=== PATIENT | female | born 1955 | race Caucasian/White ===

== ENCOUNTER 2017-03-02 16:46 | Inpatient (IN) | payer BC ==
[~2017-03-02] VITALS: Ht 162.6 cm; Wt 94.0 kg
[~2017-03-02 16:46] MED LIST: ACETAMINOPHEN/HYDROcodone 325 MG/10 MG TAB PO PRN; CYCL1PAK PO; DEXTROSE 50% IN WATER 50 ML VIAL(D50) IV PRN; ERGO2000 PO; ERGO50000 PO; GLUCAGON 1 MG/ML VIAL OTHER PRN; GLUCTAB PO; LACTULOSE SYRUP 20 GM/30 ML CUP PO PRN; LEVO.15 PO; LISI-519 PO; LOVA20TA PO; METF500T PO; NALOXONE HCL 0.4 MG/ML AMP IV PRN; NOVOLOGSS SQ; ONDANSETRON HCL 4 MG/2 ML VIAL IVP PRN; OXYC1SOL5 PO; SODIUM CHLORIDE 0.9% FLUSH 10 ML FLUSH IV FLUSH PRN; SYNT75TA PO
[2017-03-02 17:20] VITALS: O2SAT 97
[2017-03-02] MEDS ORDERED: VANCOMYCIN INJ 1,000 MG in SODIUM CHLOR 0.9% 250 ML INJ 250 ML IV ONE (17:30)
[2017-03-02] MEDS ORDERED: Vancomycin Consult Pharmacy 1 EA OTHER SCH (17:30)
[2017-03-02] MEDS: ACETAMINOPHEN 325 MG TAB PO PRN (17:34)
--- NOTE | 2017-03-02 17:39 | HHI.HP ---
[facility] Non-Staff Admission Diagnosis Diagnoses: (1) HTN (hypertension) Diagnosis: Secondary (2) Diabetes mellitus type 2 in obese Diagnosis: Secondary (3) UTI (urinary tract infection) Diagnosis: Principal (4) Sepsis Diagnosis: Principal (5) Pyelonephritis Diagnosis: Principal Travel History International Travel<30 Days: No Contact w/Intl Traveler <30 Da: No Traveled to Known Affected Are: No Sepsis Criteria SIRS Criteria (2 or more): Heart rate over 90, WBC > 02600, < 4000 or > 10% bands Sepsis Criteria (SIRS+source): Infect source susp/known History of Present Illness Mrs. Meier is a 7-year-old female. She came into the hospital secondary to lower back pain. It is also reported that she has been weak at home and having falls. She is also been acting confused. She is found to have a urinary tract infection and suspicion for pyelonephritis. Rocephin was started in the ER and diltiazem and the patient was sent here to [place] for admission. She and her help provide history. It has been approximately 3 or 4 days with gradual onset of symptoms. She does not have problems with recurrent urinary tract infections. Her baseline medical problems are diabetes mellitus type 2, hypertension, hyperlipidemia, incontinence, hypothyroidism, and history of vaginal bleeding which was treated in 2014. No other complaints. Lower back pain remains. Some nausea has been present. No chest pain. Review of Systems Constitutional: COMPLAINS OF: Fatigue, Fever, Chills Eyes: DENIES: Blurred vision, Diplopia, Eye inflammation Ears, nose, mouth, throat: DENIES: Tinnitus, Hearing loss, Vertigo Respiratory: DENIES: Cough, Wheezing, Sputum production Cardiovascular: DENIES: Chest pain, Palpitations, Syncope Gastrointestinal: DENIES: Abdominal pain, Black stools, Bloody stools Musculoskeletal: COMPLAINS OF: Back pain, DENIES: Joint pain, Muscle aches Integumentary: DENIES: Abnormal pigmentation, Pruritus, Rash Hematologic/lymphatic: DENIES: Bruising Immunologic/allergic: DENIES: Eczema Neurologic: DENIES: Abnormal gait, Headache, Paresthesias Psychiatric: COMPLAINS OF: Confusion, Mood changes, DENIES: Anxiety, Depression , Hallucinations Past Family Social History Past Medical History Diabetes mellitus type 2 Hypertension Hyperlipidemia Hypothyroidism History of vaginal bleeding (resolved with D&C) Incontinence Past Surgical History Tonsillectomy Hysterectomy D&C in 2015 Coronary stent Reported Medications Reported Meds & Active Scripts Active Reported Synthroid (Levothyroxine Sodium) 150 Mcg Tab 150 Mcg PO DAILY Vitamin D2 (Ergocalciferol) 2,000 Unit Tab 2,000 Units PO DAILY Metformin (Metformin HCl) 500 Mg Tab 500 Mg PO BIDPC With meals Lovastatin 20 Mg Tab 20 Mg PO DAILY Lisinopril 5 Mg Tab 5 Mg PO DAILY Allergies: Coded Allergies: No Known Allergies (Unverified , 03/02/17) Family History No known history of father, he left when she was a child Mother still alive and has no reported medical conditions Social History No smoking No alcohol abuse No illicit drug abuse Physical Exam Physical Exam GENERAL: NAD, A&Ox2 HEAD: Normocephalic. NECK: Supple, trachea midline. No lymphadenopathy. EYES: No scleral icterus. No injection or drainage. CARDIOVASCULAR: Regular rate and rhythm without murmurs, gallops, or rubs. RESPIRATORY: Breath sounds equal bilaterally. No accessory muscle use. GASTROINTESTINAL: Abdomen soft, non-tender, nondistended. MUSCULOSKELETAL: No cyanosis, or edema. SKIN: Warm and dry. NEURO: No focal neurological deficitis. Caprini VTE Risk Assessment Caprini VTE Risk Assessment: No/Low Risk (score <= 1) Caprini Risk Assessment Model Point Value = 1 Point Value = 2 Point Value = 3 Point Value = 5 Age 41-60 Minor surgery BMI > 25 kg/m2 Swollen legs Varicose veins or History of unexplained or recurrent spontaneous Oral contraceptives or hormone replacement Sepsis (< 1 month) Serious lung disease, including pneumonia (< 1 month) Abnormal pulmonary function Acute myocardial infarction Congestive heart failure (< 1 month) History of inflammatory bowel disease Medical patient at bed rest Age 61-74 Arthroscopic surgery Major open surgery (> 45 min) Laparoscopic surgery (> 45 min) Malignancy Confined to bed (> 72 hours) Immobilizing plaster cast Central venous access Age >= 75 History of VTE Family history of VTE Factor V Leiden Prothrombin [id number] Lupus anticoagulant Anticardiolipin antibodies Elevated serum homocysteine Heparin-induced thrombocytopenia Other congenital or acquired thrombophilia Stroke (< 1 month) Elective arthroplasty Hip, pelvis, or leg fracture Acute spinal cord injury (< 1 month) Prophylaxis Regimen Total Risk Factor Score Risk Level Prophylaxis Regimen 0-1 Low Early ambulation 2 Moderate Order ONE of the following: *Sequential Compression Device (SCD) *Heparin 5000 units SQ BID 3-4 Higher Order ONE of the following medications: *Heparin 5000 units SQ TID *Enoxaparin/Lovenox 40 mg SQ daily (WT < 150 kg, CrCl > 30 mL/min) *Enoxaparin/Lovenox 30 mg SQ daily (WT < 150 kg, CrCl > 10-29 mL/min) *Enoxaparin/Lovenox 30 mg SQ BID (WT < 150 kg, CrCl > 30 mL/min) AND/OR *Sequential Compression Device (SCD) 5 or more Highest Order ONE of the following medications: *Heparin 5000 units SQ TID (Preferred with Epidurals) *Enoxaparin/Lovenox 40 mg SQ daily (WT < 150 kg, CrCl > 30 mL/min) *Enoxaparin/Lovenox 30 mg SQ daily (WT < 150 kg, CrCl > 10-29 mL/min) *Enoxaparin/Lovenox 30 mg SQ BID (WT < 150 kg, CrCl > 30 mL/min) AND *Sequential Compression Device (SCD) Assessment and Plan Problem List: (1) Pyelonephritis ICD Code: N12 - Tubulo-interstitial nephritis, not specified as acute or chronic (2) Sepsis ICD Code: A41.9 - Sepsis, unspecified organism (3) UTI (urinary tract infection) ICD Code: N39.0 - Urinary tract infection, site not specified (4) HTN (hypertension) ICD Code: I10 - Essential (primary) hypertension (5) Diabetes mellitus type 2 in obese ICD Code: E11.69 - Type 2 diabetes mellitus with other specified complication; E66.9 - Obesity, unspecified Assessment and Plan Assessment and plan 61-year-old female admitted with UTI, pyelonephritis, and sepsis Sepsis IV hydration Follow vital signs Follow renal function Monitor for resolution of sepsis Treatment infections as below Urinary tract infection Pyelonephritis Rocephin Vancomycin for coverage of MRSA Probiotics Follow urine cultures Metabolic encephalopathy Related to infection and sepsis Treat infection as above Monitor for improvement Diabetes mellitus type 2 Follow blood sugars Insulin sliding scale Diabetic diet Hypertension Continue baseline treatment Monitor blood pressures Adjust if needed Hyperlipidemia Hypothyroidism Continue baseline treatment Follows in outpatient DVT prophylaxis Lovenox SCDs Physician Certification 2 Midnight Certification Type: Admission for Inpatient Services Order for Inpatient Services The services are ordered in accordance with Medicare regulations or non- Medicare payer requirements, as applicable. In the case of services not specified as inpatient-only, they are appropriately provided as inpatient services in accordance with the 2-midnight benchmark. Estimated LOS (days): 2 days is the estimated time the patient will need to remain in the hospital, assuming treatment plan goals are met and no additional complications. Post-Hospital Plan: Home Pb Rolon MD Mar 02, 2017 17:39
[2017-03-02] MEDS: INSULIN ASPART SUPPLEMENTAL SCALE SQ SCH ×2 (17:50→21:06)
[2017-03-02] MEDS: ENOXAPARIN SODIUM 40 MG/0.4 ML SYRINGE SQ SCH (17:52)
[2017-03-02] MEDS: SODIUM CHLOR 0.9% 1000 ML INJ 1,000 ML IV SCH ×2 (17:55→21:09)
[2017-03-02 18:00] VITALS: BP 157/78; PULSE 78; RESP 18; TEMP 98.1; O2SAT 97
[2017-03-02] MEDS: LACTOBACILLUS ACIDOPHILUS TAB PO SCH (19:00)
[2017-03-02 20:00] VITALS: BP 125/59; PULSE 90; RESP 20; TEMP 98.3; O2SAT 96
[2017-03-02] MEDS: SODIUM CHLORIDE 0.9% FLUSH 10 ML FLUSH IV FLUSH SCH (21:07)
[2017-03-03] VITALS: BP 147/69; PULSE 116; RESP 20; TEMP 102.7; O2SAT 93
[2017-03-03] MEDS: ACETAMINOPHEN 325 MG TAB PO PRN ×3 (00:33→21:09)
[2017-03-03 04:00] VITALS: TEMP 99.7
[2017-03-03] MEDS: SODIUM CHLOR 0.9% 1000 ML INJ 1,000 ML IV SCH ×2 (05:31→17:40)
[2017-03-03] MEDS: INSULIN ASPART SUPPLEMENTAL SCALE SQ SCH ×4 (05:41→21:00)
[2017-03-03 06:49] LABS: AUTOMATED NEUTROPHIL # 10.8 TH/MM3 (1.8-7.7); BASOPHIL # 0.1 TH/MM3 (0-0.2); BASOPHIL % 0.5 % (0.0-2.0); EOSINOPHIL % 0.1 % (0.0-4.0); HEMATOCRIT 33.6 % (35.0-46.0); LYMPHOCYTE # 1.3 TH/MM3 (1.0-4.8); MEAN CELL VOLUME 85.7 FL (80.0-100.0); MEAN CORPUSCULAR HEMOGLOBIN 28.4 PG (27.0-34.0); MEAN CORPUSCULAR HGB CONC 33.1 % (32.0-36.0); MONO % 5.6 % (0.0-8.0); NEUT % 83.8 % (16.0-70.0); PLATELET COUNT 236 TH/MM3 (150-450); RED BLOOD COUNT 3.92 MIL/MM3 (4.00-5.30); RED CELL DISTRIBUTION WIDTH 15.5 % (11.6-17.2); WHITE BLOOD COUNT 12.9 TH/MM3 (4.0-11.0)
[2017-03-03 06:50] LABS: HEMO FLAGS DIFF FINAL
[2017-03-03 06:56] LABS: CHLORIDE 106 MEQ/L (98-107); POTASSIUM 4.3 MEQ/L (3.5-5.1); SODIUM (NA) 138 MEQ/L (136-145)
[2017-03-03 07:01] LABS: ANION GAP 8 MEQ/L (5-15); BICARBONATE 23.6 MEQ/L (21.0-32.0); BLOOD UREA NITROGEN 13 MG/DL (7-18)
[2017-03-03 07:04] LABS: ALT (GPT) 29 U/L (10-53); AST (GOT) 30 U/L (15-37); GLOMERULAR FILTRATION RATE 57 ML/MIN (>89)
[2017-03-03 07:06] LABS: TOTAL BILIRUBIN ADULT 0.7 MG/DL (0.2-1.0)
[2017-03-03 07:07] LABS: ALKALINE PHOSPHATASE 104 U/L (45-117)
[2017-03-03 08:00] VITALS: BP 140/57; PULSE 106; RESP 20; TEMP 99.6; O2SAT 95
[2017-03-03] MEDS: SODIUM CHLORIDE 0.9% FLUSH 10 ML FLUSH IV FLUSH SCH ×2 (08:28→21:00)
[2017-03-03] MEDS: LACTOBACILLUS ACIDOPHILUS TAB PO SCH ×3 (08:49→17:35)
[2017-03-03] MEDS: VANCOMYCIN INJ 1,350 MG in SODIUM CHLORID 0.9% 500 ML INJ 500 ML IV SCH (08:49)
--- NOTE | 2017-03-03 10:51 | HHI.PR ---
Subjective Remarks This patient's ER evaluation was done at [place], some of her records (cultures ) are in that record. Patient remained symptomatically. Fevers are present as of this morning. There are some signs of improvement. Her cognition is improved. She still meets sepsis criteria. Bacteremia may be present as blood cultures are positive from yesterday. Objective Vital Signs Date Time Temp Pulse Resp B/P (MAP) Pulse Ox O2 Delivery O2 Flow Rate FiO2 03/03/17 08:00 99.6 106 20 140/57 (84) 95 03/03/17 04:00 99.7 03/03/17 00:00 102.7 116 20 147/69 (95) 93 03/02/17 20:00 98.3 90 20 125/59 (81) 96 03/02/17 18:00 98.1 78 18 157/78 (104) 97 03/02/17 17:20 97 Nasal Cannula 2.00 I/O 03/02/17 03/02/17 03/02/17 03/03/17 03/03/17 03/03/17 07:00 15:00 23:00 07:00 15:00 23:00 Intake Total 120 ml Balance 120 ml Intake Oral 120 ml # Voids 3 Result Diagram: 03/03/1737 03/03/17 0637 Objective Remarks GENERAL: NAD, A&Ox3 HEAD: Normocephalic. NECK: Supple, trachea midline. No lymphadenopathy. EYES: No scleral icterus. No injection or drainage. CARDIOVASCULAR: Regular rate and rhythm without murmurs, gallops, or rubs. RESPIRATORY: Breath sounds equal bilaterally. No accessory muscle use. GASTROINTESTINAL: Abdomen soft, non-tender, nondistended. MUSCULOSKELETAL: No cyanosis, or edema. SKIN: Warm and dry. NEURO: No focal neurological deficitis. A/P Problem List: (1) Diabetes mellitus type 2 in obese ICD Code: E11.69 - Type 2 diabetes mellitus with other specified complication; E66.9 - Obesity, unspecified (2) HTN (hypertension) ICD Code: I10 - Essential (primary) hypertension (3) UTI (urinary tract infection) ICD Code: N39.0 - Urinary tract infection, site not specified (4) Sepsis ICD Code: A41.9 - Sepsis, unspecified organism (5) Pyelonephritis ICD Code: N12 - Tubulo-interstitial nephritis, not specified as acute or chronic Assessment and Plan Assessment and plan 61-year-old female admitted with UTI, pyelonephritis, and sepsis Sepsis IV hydration Follow vital signs Follow renal function Monitor for resolution of sepsis Treatment infections as below Urinary tract infection Pyelonephritis Possible bacteremia Rocephin Vancomycin for coverage of MRSA Probiotics Follow urine cultures Repeat blood cultures Follow for set of blood cultures Consult infectious disease blood cultures and a showing more evidence of bacteremia Metabolic encephalopathy Related to infection and sepsis Treat infection as above Monitor for improvement Diabetes mellitus type 2 Follow blood sugars Insulin sliding scale Diabetic diet Hypertension Continue baseline treatment Monitor blood pressures Adjust if needed Hyperlipidemia Hypothyroidism Continue baseline treatment Follows in outpatient DVT prophylaxis Lovenox SCDs Pb Rolon MD Mar 03, 2017 10:51
[2017-03-03 12:00] VITALS: BP 136/62; PULSE 94; RESP 20; TEMP 100.7; O2SAT 93
[2017-03-03] MEDS: ENOXAPARIN SODIUM 40 MG/0.4 ML SYRINGE SQ SCH (17:36)
[2017-03-03 21:04] VITALS: BP 107/69; PULSE 90; RESP 20; TEMP 100.4; O2SAT 92
[2017-03-04 01:06] VITALS: BP 108/72; PULSE 89; RESP 20; TEMP 98.3; O2SAT 99
[2017-03-04] MEDS: VANCOMYCIN INJ 1,350 MG in SODIUM CHLORID 0.9% 500 ML INJ 500 ML IV SCH (02:00)
[2017-03-04] MEDS: ACETAMINOPHEN/HYDROcodone 325 MG/5 MG TAB PO PRN (03:57)
[2017-03-04] MEDS: SODIUM CHLOR 0.9% 1000 ML INJ 1,000 ML IV SCH ×3 (05:08→20:53)
[2017-03-04] MEDS: INSULIN ASPART SUPPLEMENTAL SCALE SQ SCH ×4 (07:00→20:49)
[2017-03-04 08:00] VITALS: BP 128/66; PULSE 86; RESP 20; TEMP 99.1; O2SAT 96
[2017-03-04 08:31] LABS: AUTOMATED NEUTROPHIL # 5.9 TH/MM3 (1.8-7.7); BASOPHIL # 0.1 TH/MM3 (0-0.2); BASOPHIL % 0.6 % (0.0-2.0); EOSINOPHIL # 0.1 TH/MM3 (0-0.4); EOSINOPHIL % 0.7 % (0.0-4.0); HEMO FLAGS DIFF FINAL; LYMPH % 17.9 % (9.0-44.0); LYMPHOCYTE # 1.5 TH/MM3 (1.0-4.8); MEAN CELL VOLUME 83.5 FL (80.0-100.0); MEAN CORPUSCULAR HEMOGLOBIN 27.2 PG (27.0-34.0); MEAN CORPUSCULAR HGB CONC 32.5 % (32.0-36.0); MONO % 7.8 % (0.0-8.0); PLATELET COUNT 214 TH/MM3 (150-450); RED BLOOD COUNT 3.59 MIL/MM3 (4.00-5.30); RED CELL DISTRIBUTION WIDTH 14.9 % (11.6-17.2); WHITE BLOOD COUNT 8.3 TH/MM3 (4.0-11.0)
[2017-03-04] MEDS: SODIUM CHLORIDE 0.9% FLUSH 10 ML FLUSH IV FLUSH SCH ×2 (08:32→20:48)
[2017-03-04 08:45] LABS: POTASSIUM 4.1 MEQ/L (3.5-5.1)
[2017-03-04] MEDS: LACTOBACILLUS ACIDOPHILUS TAB PO SCH ×3 (08:51→17:01)
[2017-03-04 09:16] LABS: BICARBONATE 21.1 MEQ/L (21.0-32.0); TOTAL BILIRUBIN ADULT 0.6 MG/DL (0.2-1.0)
[2017-03-04 09:20] LABS: CALCIUM-PROTEIN CORRECTED 7.4 MG/DL (8.5-10.1)
[2017-03-04] MEDS ORDERED: CALCIUM GLUCONATE INJ 2 GM in DEXTROSE 5% IN WATER 100ML INJ 100 ML IV ONE ×2 (11:00)
[2017-03-04] MEDS: cefTRIAXone INJ 2,000 MG in SODIUM CHLORIDE 0.9% INJ 100 ML IV SCH (11:06)
[2017-03-04] MEDS: INSULIN DETEMIR 100 UNITS/ML VIAL SQ SCH ×2 (11:12→20:52)
--- NOTE | 2017-03-04 11:21 | HHI.PR ---
Subjective Remarks Patient has had low-grade fevers. She has some right CVA tenderness. No nausea or vomiting. Calcium is low this morning and being replaced. Objective Vitals Vital Signs Date Time Temp Pulse Resp B/P (MAP) Pulse Ox O2 Delivery O2 Flow Rate FiO2 03/04/17 08:00 99.1 86 20 128/66 (86) 96 03/04/17 04:30 03/04/17 01:06 98.3 89 20 108/72 (84) 99 03/03/17 21:04 100.4 90 20 107/69 (82) 92 03/03/17 12:00 100.7 94 20 136/62 (86) 93 I/O 03/03/17 03/03/17 03/03/17 03/04/17 03/04/17 03/04/17 07:00 15:00 23:00 07:00 15:00 23:00 Intake Total 120 ml 430 ml 1488 ml Balance 120 ml 430 ml 1488 ml Intake Oral 120 ml 430 ml IV Total 1488 ml # Voids 3 4 3 # Bowel Movements 1 0 Result Diagram: 03/04/17 0712 03/04/17 0712 Objective Remarks GENERAL: Well-nourished, well-developed pleasant female patient. SKIN: Warm and dry. HEAD: Normocephalic. EYES: No scleral icterus. No injection or drainage. NECK: Supple, trachea midline. No JVD or lymphadenopathy. CARDIOVASCULAR: Regular rate and rhythm without murmurs, gallops, or rubs. RESPIRATORY: Breath sounds equal bilaterally. No accessory muscle use. GASTROINTESTINAL: Abdomen soft, non-tender, nondistended. Positive right CVA tenderness. EXTREMITIES: No cyanosis, or edema. NEUROLOGICAL: Awake, alert, and oriented x 3. Non-focal. A/P Problem List: (1) Pyelonephritis ICD Code: N12 - Tubulo-interstitial nephritis, not specified as acute or chronic (2) Sepsis ICD Code: A41.9 - Sepsis, unspecified organism (3) UTI (urinary tract infection) ICD Code: N39.0 - Urinary tract infection, site not specified (4) HTN (hypertension) ICD Code: I10 - Essential (primary) hypertension (5) Diabetes mellitus type 2 in obese ICD Code: E11.69 - Type 2 diabetes mellitus with other specified complication; E66.9 - Obesity, unspecified Assessment and Plan 61-year-old female admitted with UTI, pyelonephritis, and sepsis Sepsis due to pyelonephritis/UTIEscherichia coli bacteremia Continue IV hydration, Rocephin 2 g IV daily Repeat blood culture pending Infectious disease consultation pending. If continued fevers continue renal ultrasound Follow vital signs Follow renal function Metabolic encephalopathy-resolved Related to infection and sepsis Treat infection as above Hypocalcemia -Calcium gluconate 2 g IV now and start Tums twice a day. Telemetry. Diabetes mellitus type 2 Follow blood sugars, elevated the start Levemir 5 units subcutaneous twice a day Insulin sliding scale Diabetic diet Hypertension Continue baseline treatment Monitor blood pressures Adjust if needed Hyperlipidemia Hypothyroidism Continue baseline treatment Follows in outpatient DVT prophylaxis Lovenox SCDs Problem Qualifiers (1) Sepsis: Qualified Codes: A41.51 - Sepsis due to Escherichia coli [e. coli] Buffy Escoto MD Mar 04, 2017 11:21
[2017-03-04 12:00] VITALS: BP 133/70; PULSE 86; RESP 20; TEMP 98.7; O2SAT 95
[2017-03-04 16:00] VITALS: BP 130/111; PULSE 94; RESP 20; TEMP 98.7; O2SAT 95
[2017-03-04] MEDS: ENOXAPARIN SODIUM 40 MG/0.4 ML SYRINGE SQ SCH (17:01)
[2017-03-04] MEDS: CALCIUM CARBONATE 500 MG CHEWABLE TAB CHEW SCH (20:48)
[2017-03-04 21:45] VITALS: BP 132/57; PULSE 87; RESP 18; TEMP 99.1; O2SAT 91
[2017-03-04] MEDS: ACETAMINOPHEN 325 MG TAB PO PRN (22:42)
--- NOTE | 2017-03-04 23:35 | RADRPT ---
EXAM DATE/TIME: 03/04/2017 23:07 [place] COMPARISON: No previous studies available for comparison. INDICATIONS : Shortness of breath. MEDICAL HISTORY : Diabetes mellitus type II. SURGICAL HISTORY : None. ENCOUNTER: Initial ACUITY: 1 day PAIN SCORE: 0/10 LOCATION: Bilateral chest FINDINGS: A single view of the chest demonstrates dependent and basilar density most characteristic of atelecta sis. No significant effusion. Heart size upper limits normal. No pneumothorax. CONCLUSION: 1. Basilar and dependent atelectasis in the lungs. No pneumothorax or significant effusion. Doe Edmondson MD on March 04, 2017 at 23:33 Board Certified Radiologist. This report was verified electronically.
[2017-03-05] VITALS (8 sets, daily range): BP systolic 136–160; BP diastolic 66–79; PULSE 83–103; RESP 18–24; TEMP 98.1–101.3; O2SAT 92–100
[2017-03-05] MEDS: ACETAMINOPHEN/HYDROcodone 325 MG/5 MG TAB PO PRN (06:35)
[2017-03-05] MEDS: INSULIN ASPART SUPPLEMENTAL SCALE SQ SCH ×4 (07:00→21:08)
[2017-03-05 07:35] LABS: POTASSIUM 3.7 MEQ/L (3.5-5.1)
[2017-03-05 07:41] LABS: BICARBONATE 22.7 MEQ/L (21.0-32.0)
[2017-03-05] MEDS: CALCIUM CARBONATE 500 MG CHEWABLE TAB CHEW SCH ×3 (08:24→21:06)
[2017-03-05 08:44] LABS: AUTOMATED NEUTROPHIL # 6.4 TH/MM3 (1.8-7.7); BASOPHIL # 0.1 TH/MM3 (0-0.2); BASOPHIL % 0.6 % (0.0-2.0); EOSINOPHIL # 0.1 TH/MM3 (0-0.4); EOSINOPHIL % 0.8 % (0.0-4.0); HEMATOCRIT 29.9 % (35.0-46.0); HEMO FLAGS DIFF FINAL; LYMPH % 19.8 % (9.0-44.0); LYMPHOCYTE # 1.9 TH/MM3 (1.0-4.8); MEAN CELL VOLUME 84.9 FL (80.0-100.0); MONO % 11.2 % (0.0-8.0); NEUT % 67.6 % (16.0-70.0); PLATELET COUNT 227 TH/MM3 (150-450); RED BLOOD COUNT 3.52 MIL/MM3 (4.00-5.30); RED CELL DISTRIBUTION WIDTH 15.3 % (11.6-17.2); WHITE BLOOD COUNT 9.6 TH/MM3 (4.0-11.0)
[2017-03-05] MEDS: LACTOBACILLUS ACIDOPHILUS TAB PO SCH ×3 (08:55→16:59)
[2017-03-05] MEDS: INSULIN DETEMIR 100 UNITS/ML VIAL SQ SCH ×2 (08:57→21:06)
[2017-03-05] MEDS: SODIUM CHLORIDE 0.9% FLUSH 10 ML FLUSH IV FLUSH SCH ×2 (08:58→21:06)
[2017-03-05] MEDS: cefTRIAXone INJ 2,000 MG in SODIUM CHLORIDE 0.9% INJ 100 ML IV SCH (08:58)
--- NOTE | 2017-03-05 12:43 | HHI.PR ---
Subjective Remarks Patient had low-grade fever at 1 AM this morning. She has some mild wheeze today. Denies any pain. Objective Vitals Vital Signs Date Time Temp Pulse Resp B/P (MAP) Pulse Ox O2 Delivery O2 Flow Rate FiO2 03/05/17 09:40 98.1 85 18 150/70 (96) 94 03/05/17 04:09 03/05/17 01:13 100.3 103 24 160/72 (101) 98 03/04/17 21:45 99.1 87 18 132/57 (82) 91 03/04/17 16:00 98.7 94 20 130/111 (117) 95 I/O 03/04/17 03/04/17 03/04/17 03/05/17 03/05/17 03/05/17 07:00 15:00 23:00 07:00 15:00 23:00 Intake Total 1488 ml 430 ml 2166 ml Balance 1488 ml 430 ml 2166 ml Intake Oral 430 ml IV Total 1488 ml 2166 ml # Voids 3 4 # Bowel Movements 0 0 Result Diagram: 03/05/17 0542 03/05/17 0542 Objective Remarks GENERAL: Well-nourished, well-developed pleasant female patient. SKIN: Warm and dry. HEAD: Normocephalic. EYES: No scleral icterus. No injection or drainage. NECK: Supple, trachea midline. No JVD or lymphadenopathy. CARDIOVASCULAR: Regular rate and rhythm without murmurs, gallops, or rubs. RESPIRATORY: Breath sounds equal bilaterally. Mild wheezing anteriorly. No accessory muscle use. GASTROINTESTINAL: Abdomen soft, non-tender, nondistended. Positive right CVA tenderness. EXTREMITIES: No cyanosis, or edema. NEUROLOGICAL: Awake, alert, and oriented x 3. Non-focal. A/P Problem List: (1) Pyelonephritis ICD Code: N12 - Tubulo-interstitial nephritis, not specified as acute or chronic (2) Sepsis ICD Code: A41.9 - Sepsis, unspecified organism (3) UTI (urinary tract infection) ICD Code: N39.0 - Urinary tract infection, site not specified (4) HTN (hypertension) ICD Code: I10 - Essential (primary) hypertension (5) Diabetes mellitus type 2 in obese ICD Code: E11.69 - Type 2 diabetes mellitus with other specified complication; E66.9 - Obesity, unspecified Assessment and Plan 61-year-old female admitted with UTI, pyelonephritis, and sepsis Sepsis due to pyelonephritis/UTIEscherichia coli bacteremia Continue IV hydration, Rocephin 2 g IV daily Repeat blood culture no growth for 24 hours Infectious disease consultation pending. If continued fevers continue renal ultrasound Initial blood culture showing Escherichia coli pansensitive Follow vital signs Follow renal function Metabolic encephalopathy-resolved Related to infection and sepsis Treat infection as above Hypocalcemia -Status post Calcium gluconate 2 g IV now and continue Tums twice a day. Telemetry. Diabetes mellitus type 2 Follow blood sugars, continue Levemir 5 units subcutaneous twice a day Insulin sliding scale Diabetic diet Wheezing Start duo nebs, check chest x-ray. DC IV fluids. Hypertension Continue baseline treatment Monitor blood pressures Adjust if needed Hyperlipidemia Hypothyroidism Continue baseline treatment Follows in outpatient DVT prophylaxis Lovenox SCDs Problem Qualifiers (1) Sepsis: Qualified Codes: A41.51 - Sepsis due to Escherichia coli [e. coli] uBffy Escoto MD Mar 05, 2017 12:43
[2017-03-05] MEDS ORDERED: RESP: ALBUTEROL 2.5 MG/IPRATROPIUM 0.5 MG NEB (SCH) NEB ONE (13:30)
[2017-03-05] MEDS ORDERED: PHARMACY ORDERED LAB ONE (13:45)
[2017-03-05] MEDS: SENNOSIDES 8.6 MG TAB PO PRN (14:07)
[2017-03-05] MEDS: RESP: ALBUTEROL 2.5 MG/IPRATROPIUM 0.5 MG NEB (PRN) NEB ×2 (15:27→21:44)
[2017-03-05] MEDS: ENOXAPARIN SODIUM 40 MG/0.4 ML SYRINGE SQ SCH (16:59)
[2017-03-05] MEDS: ACETAMINOPHEN 325 MG TAB PO PRN (17:31)
--- NOTE | 2017-03-05 18:33 | PD.ID.CON ---
History of Present Illness Service ID Consult Requested By Reason for Consult Evaluation and Mment of E.coli bacteremia. Primary Care Physician Non-Staff Diagnoses: History of Present Illness Mrs. Meier is a 61-year-old female with PMHx of diabetes mellitus type 2, hypertension, hyperlipidemia, incontinence, hypothyroidism, and history of vaginal bleeding which was treated in 2015. He reports that the last time she had a UTI was approximately a year back. She also reports having had laser hysterectomy a year back. She reports history of urinary incontinence. She denies any other surgical procedures in the urogenital tract. She denies any history of renal stones. Patient reports on the day of admission she was at home and felt extremely weak and her legs buckled. She reportedly was also confused and therefore her called 911. She did not want to be admitted at the local hospital so she presented initially to [place] emergency room where her WBC count was 21.5 blood cultures were drawn which grew Escherichia coli and patient was treated with antibiotics. I'm not sure how the urine was obtained it did look like it was abnormal suggestive of a urinary tract infection but the organism was not consistent with what is growing in her blood. Patient also reports having lower back pain. She denies any worsening incontinence or lack of rectal tone. She denies any lower extremity weakness. Sepsis workup was initiated and patient was transferred to [facility] for admission. ID is consulted for evaluation and Mment of Sepsis, E.coli bacteremia and possible pyelonephritis. Review of Systems Constitutional: COMPLAINS OF: Fever, Chills, Night Sweats, DENIES: Diaphoretic episodes, Fatigue, Weight gain, Weight loss, Dizziness, Change in appetite Endocrine: DENIES: Abnorml menstrual pattern, Heat/cold intolerance, Polydipsia , Polyuria, Polyphagia Eyes: DENIES: Blurred vision, Diplopia, Eye inflammation, Eye pain, Vision loss , Photosensitivity, Double Vision Ears, nose, mouth, throat: DENIES: Tinnitus, Hearing loss, Vertigo, Nasal discharge, Oral lesions, Throat pain, Hoarseness, Ear Pain, Running Nose, Epistaxis, Sinus Pain, Toothache, Odynophagia Respiratory: DENIES: Apneas, Cough, Snoring, Wheezing, Hemoptysis, Sputum production, Shortness of breath Cardiovascular: DENIES: Chest pain, Palpitations, Syncope, Dyspnea on Exertion , PND, Lower Extremity Edema, Orthopnea, Claudication Gastrointestinal: DENIES: Abdominal pain, Black stools, Bloody stools, Constipation, Diarrhea, Nausea, Vomiting, Difficulty Swallowing, Anorexia Genitourinary: DENIES: Abnormal vaginal bleeding, Dysmenorrhea, Dyspareunia, Sexual dysfunction, Urinary frequency, Urinary incontinence, Urgency, Hematuria , Dysuria, Nocturia, Vaginal discharge Musculoskeletal: COMPLAINS OF: Back pain, DENIES: Joint pain, Muscle aches, Stiffness, Joint Swelling, Neck pain Integumentary: DENIES: Abnormal pigmentation, Pruritus, Rash, Nail changes, Breast masses, Breast skin changes, Nipple discharge Hematologic/lymphatic: DENIES: Bruising, Lymphadenopathy Immunologic/allergic: DENIES: Eczema, Urticaria Neurologic: DENIES: Abnormal gait, Headache, Localized weakness, Paresthesias, Seizures, Speech Problems, Tremor, Poor Balance Psychiatric: DENIES: Anxiety, Confusion, Mood changes, Depression, Hallucinations, Agitation, Suicidal Ideation, Homicidal Ideation, Delusions Except as stated in HPI: all other systems reviewed are Neg Past Family Social History Allergies: Coded Allergies: No Known Allergies (Unverified , 03/02/17) Past Medical History Diabetes mellitus type 2 Hypertension Hyperlipidemia Hypothyroidism History of vaginal bleeding (resolved with D&C) Incontinence Past Surgical History Tonsillectomy Hysterectomy D&C in 2014 Coronary stent Reported Medications Reported Meds & Active Scripts Active Reported Synthroid (Levothyroxine Sodium) 150 Mcg Tab 150 Mcg PO DAILY Vitamin D2 (Ergocalciferol) 2,000 Unit Tab 2,000 Units PO DAILY Metformin (Metformin HCl) 500 Mg Tab 500 Mg PO BIDPC With meals Lovastatin 20 Mg Tab 20 Mg PO DAILY Lisinopril 5 Mg Tab 5 Mg PO DAILY Active Ordered Medications Current Medications Medications (Trade) Dose Ordered Sig/Edwin Route Start Time Stop Time Status Last Admin (NS Flush) 2 ml UNSCH PRN IV FLUSH 03/02/17 13:45 (NS Flush) 2 ml BID IV FLUSH 03/02/17 21:00 03/02/17 21:07 (Tylenol) 650 mg Q4H PRN PO 03/02/17 13:45 03/05/17 17:31 (Zofran Inj) 4 mg Q6H PRN IVP 03/02/17 13:45 (Lovenox Inj) 40 mg Q24H SQ 03/02/17 18:00 03/05/17 16:59 ([place] 5-325 Mg) 1 tab Q4H PRN PO 03/02/17 13:45 03/05/17 06:35 ([place] 10-325 Mg) 1 tab Q4H PRN PO 03/02/17 13:45 03/04/17 15:58 (Narcan Inj) 0.4 mg UNSCH PRN IV 03/02/17 13:45 (Senokot) 17.2 mg Q12H PRN PO 03/02/17 13:45 03/05/17 14:07 (Lactulose Liq) 30 ml DAILY PRN PO 03/02/17 13:45 (D50w (Vial) Inj) 50 ml UNSCH PRN IV 03/02/17 15:00 (Glucagon Inj) 1 mg UNSCH PRN OTHER 03/02/17 15:00 (NovoLOG SUPPLEMENTAL SCALE) 1 ACHS SLIDING SCALE SQ 03/02/17 16:00 03/05/17 17:06 (Lactinex) 1 tab TID PO 03/02/17 18:00 03/05/17 16:59 Ceftriaxone Sodium 2000 mg/ Sodium Chloride 100 ml @ 200 mls/hr Q24H IV 03/04/17 10:00 03/05/17 08:58 (Tums Chew) 500 mg Q12HR CHEW 03/04/17 21:00 03/05/17 08:54 (Levemir Inj) 5 units Q12HR SQ 03/04/17 10:00 03/05/17 08:57 (Duoneb Neb) 1 ampule QID NEB NEB 03/06/17 22:00 (Duoneb Neb) 1 ampule Q4HR NEB PRN NEB 03/05/17 13:30 03/05/17 15:27 Family History No known history of father, he left when she was a child Mother still alive and has no reported medical conditions Social History No smoking No alcohol abuse No illicit drug abuse Lives in [place] with spouse Physical Exam Vital Signs Vital Signs Date Time Temp Pulse Resp B/P (MAP) Pulse Ox O2 Delivery O2 Flow Rate FiO2 03/05/17 17:23 101.3 98 24 155/79 (104) 100 03/05/17 15:36 99.0 92 22 143/71 (95) 96 03/05/17 13:16 92 Nasal Cannula 2.00 03/05/17 09:40 98.1 85 18 150/70 (96) 94 03/05/17 04:09 03/05/17 01:13 100.3 103 24 160/72 (101) 98 03/04/17 21:45 99.1 87 18 132/57 (82) 91 Physical Exam GENERAL: Obese, well-developed patient, in no apparent distress. SKIN: No rashes, ecchymoses or lesions. Cool and dry. HEAD: Atraumatic. Normocephalic. No temporal or scalp tenderness. EYES: Pupils equal round and reactive. Extraocular motions intact. No scleral icterus. No injection or drainage. ENT: Nose without bleeding, purulent drainage or septal hematoma. Throat without erythema, tonsillar hypertrophy or exudate. Uvula midline. Airway patent. NECK: Trachea midline. Supple, nontender, no meningeal signs. CARDIOVASCULAR: Regular rate and rhythm without murmurs, gallops, or rubs. RESPIRATORY: Clear to auscultation. Breath sounds equal bilaterally. No wheezes , rales, or rhonchi. GASTROINTESTINAL: Abdomen soft, non-tender, nondistended. ? CVA tenderness Right side. MUSCULOSKELETAL: Extremities without clubbing, cyanosis, or edema. No joint tenderness, effusion, or edema noted. No calf tenderness. Negative Homans sign bilaterally. NEUROLOGICAL: Awake and alert. Grossly non focal Psych: cooperative IV line sites with no e.o infection. Laboratory Laboratory Tests Test 03/05/17 05:42 White Blood Count 9.6 Red Blood Count 3.52 Hemoglobin 9.9 Hematocrit 29.9 Mean Corpuscular Volume 84.9 Mean Corpuscular Hemoglobin 28.0 Mean Corpuscular Hemoglobin Concent 33.0 Red Cell Distribution Width 15.3 Platelet Count 227 Mean Platelet Volume 9.6 Neutrophils (%) (Auto) 67.6 Lymphocytes (%) (Auto) 19.8 Monocytes (%) (Auto) 11.2 Eosinophils (%) (Auto) 0.8 Basophils (%) (Auto) 0.6 Neutrophils # (Auto) 6.4 Lymphocytes # (Auto) 1.9 Monocytes # (Auto) 1.1 Eosinophils # (Auto) 0.1 Basophils # (Auto) 0.1 CBC Comment DIFF FINAL Differential Comment Blood Urea Nitrogen 11 Creatinine 0.64 Random Glucose 194 Calcium Level 7.8 Sodium Level 139 Potassium Level 3.7 Chloride Level 105 Carbon Dioxide Level 22.7 Anion Gap 11 Estimat Glomerular Filtration Rate 95 Date/Time Source Procedure Growth Status 03/03/17 10:40 Blood Peripheral Aerobic Blood Culture - Preliminary NO GROWTH IN 2 DAYS Resulted 03/03/17 10:40 Blood Peripheral Anaerobic Blood Culture - Preliminary NO GROWTH IN 2 DAYS Resulted Result Diagram: 03/05/17 0542 03/05/17 0542 Imaging Last Impressions Chest X-Ray 03/04/17 0000 Signed Impressions: Service Date/Time: Saturday, March 04, 2017 23:07 - CONCLUSION: 1. Basilar and dependent atelectasis in the lungs. No pneumothorax or significant effusion. Deo Edmondson MD Assessment and Plan Assessment and Plan Sepsis present on admission E.coli bacteremia. R/o Endocarditis. Abnormal UA, normal urogenital gauri 50,000-100,000 CFU. No antibiotics prior to admission Incontinence Recs: Continue Ceftriaxone IV Repeat blood cultures x [address] reviewed. Due to persistent fevers and unclear source of infection will repeat UA CT Abd/pelvis with contrast r/o pyelonephritis. MRI L spine epidural abscess/osteomyelitis. Check 2D ECHO r.o endocarditis. Talia Souza MD Mar 05, 2017 18:33
[2017-03-05 21:19] LABS: BLOOD, URINE MOD (NEG); GLUCOSE,URINE 1000 OR GREATER mg/dL (NEG); KETONE, URINE 80 OR GREATER mg/dL (NEG); NITRITE,URINE NEG (NEG)
[2017-03-05 21:24] LABS: COMMENT (UR) CULTURE INDICATED; CULTURE IF INDICATED CULTURE INDICATED; RBC, URINE 0-3 /hpf (0-3); SQUAMOUS EPITHELIAL CELL URINE 0-5 /hpf (0-5); URINE COLOR YELLOW (YELLW/STRAW)
[2017-03-06] VITALS (7 sets, daily range): BP systolic 126–159; BP diastolic 66–80; PULSE 86–100; RESP 16–22; TEMP 97.8–98.8; O2SAT 91–96
[2017-03-06 07:03] LABS: CHLORIDE 103 MEQ/L (98-107); POTASSIUM 3.4 MEQ/L (3.5-5.1); SODIUM (NA) 138 MEQ/L (136-145)
[2017-03-06 07:11] LABS: ANION GAP 10 MEQ/L (5-15); BICARBONATE 25.4 MEQ/L (21.0-32.0); BLOOD UREA NITROGEN 9 MG/DL (7-18)
[2017-03-06 07:14] LABS: ALT (GPT) 87 U/L (10-53); AST (GOT) 66 U/L (15-37); GLOMERULAR FILTRATION RATE 93 ML/MIN (>89)
[2017-03-06 07:16] LABS: TOTAL BILIRUBIN ADULT 0.6 MG/DL (0.2-1.0)
[2017-03-06 07:17] LABS: ALKALINE PHOSPHATASE 166 U/L (45-117)
[2017-03-06] MEDS: RESP: ALBUTEROL 2.5 MG/IPRATROPIUM 0.5 MG NEB (SCH) NEB ×3 (08:15→19:36)
[2017-03-06] MEDS: CALCIUM CARBONATE 500 MG CHEWABLE TAB CHEW SCH ×2 (08:47→21:07)
[2017-03-06] MEDS: LACTOBACILLUS ACIDOPHILUS TAB PO SCH ×3 (08:47→17:52)
[2017-03-06] MEDS: cefTRIAXone INJ 2,000 MG in SODIUM CHLORIDE 0.9% INJ 100 ML IV SCH (08:47)
[2017-03-06] MEDS: INSULIN DETEMIR 100 UNITS/ML VIAL SQ SCH ×2 (08:53→21:22)
[2017-03-06] MEDS: INSULIN ASPART SUPPLEMENTAL SCALE SQ SCH ×6 (08:54→21:22)
[2017-03-06] MEDS: SENNOSIDES 8.6 MG TAB PO PRN (09:52)
[2017-03-06] MEDS: SODIUM CHLORIDE 0.9% FLUSH 10 ML FLUSH IV FLUSH SCH ×2 (09:53→21:07)
[2017-03-06] MEDS ORDERED: POTASSIUM CHLORIDE 10 MEQ CONTROLLED RELEASE TAB PO ONE (10:00)
--- NOTE | 2017-03-06 11:23 | ECHRPT ---
Indication: SEPSIS, R/O ENDOCARDITIS CONCLUSIONS Normal left ventricular size and wall thickness. The left ventricular systolic function is normal wi th an estimated ejection fraction in the range of 60-65%. Left ventricular diastolic function parameters a re normal. No segmental wall motion abnormalities. Trace tricuspid regurgitation. Trileaflet aortic valve. Trivial regurgitation. BP: 133 / 73 HR: 90 Rhythm: Sinus MEASUREMENTS (Male / Female) Normal Values Technical Quality:Fair 2D ECHO LV Diastolic Diameter PLAX 5.4 cm 4.2 - 5.9 / 3.9 - 5.3 cm LV Systolic Diameter PLAX 3.8 cm IVS Diastolic Thickness 1.0 cm 0.6 - 1.0 / 0.6 - 0.9 cm LVPW Diastolic Thickness 1.1 cm 0.6 - 1.0 / 0.6 - 0.9 cm LV Relative Wall Thickness 0.4 LVOT Diameter 2.1 cm Aortic Root Diameter 3.1 cm LA Systolic Diameter LX 2.6 cm 3.0 - 4.0 / 2.7 - 3.8 cm M-MODE AV Cusp Separation MM 2.3 cm DOPPLER AV Peak Velocity 99.3 cm/s AV Peak Gradient 3.9 mmHg AV Mean Gradient 2.0 mmHg AV Velocity Time Integral 20.6 cm LVOT Peak Velocity 60.2 cm/s LVOT Peak Gradient 1.4 mmHg LVOT Velocity Time Integral 11.9 cm LVOT Cardiac Index 1739.2 cm/minm AV Area Cont Eq vti 2.0 cm AV Area Cont Eq pk 2.1 cm Mitral E Point Velocity 104.0 cm/s Mitral A Point Velocity 76.0 cm/s Mitral E to A Ratio 1.4 LV E' Lateral Velocity 7.8 cm/s Mitral E to LV E' Lateral Ratio 13.3 LV E' Septal Velocity 7.2 cm/s Mitral E to LV E' Septal Ratio 14.4 TR Peak Velocity 280.0 cm/s TR Peak Gradient 31.4 mmHg PV Peak Velocity 55.6 cm/s PV Peak Gradient 1.2 mmHg FINDINGS LEFT VENTRICLE Normal left ventricular size and wall thickness. The left ventricular systolic function is normal wi th an estimated ejection fraction in the range of 60-65%. Left ventricular diastolic function parameters a re normal. No segmental wall motion abnormalities. RIGHT VENTRICLE Normal right ventricular size and systolic function. LEFT ATRIUM The left atrial size is normal. RIGHT ATRIUM The right atrial size is normal. ATRIAL SEPTUM The interatrial septum not well visualized. AORTA The aortic root and proximal ascending aorta are normal in size on limited imaging. MITRAL VALVE Structurally normal mitral valve. No mitral valve stenosis or regurgitation. AORTIC VALVE Trileaflet aortic valve. Trivial regurgitation. TRICUSPID VALVE Structurally normal tricuspid valve. Trace tricuspid regurgitation. PULMONARY VALVE Trivial pulmonary valve regurgitation. VESSELS The inferior vena cava (IVC) is normal in size. PERICARDIUM A prominent epicardial fat pad is present. Caesar Rogers MD (Electronically Signed) Final Date:06 March 2017 11:22
[2017-03-06] MEDS ORDERED: FUROSEMIDE 40 MG/4 ML VIAL IV PUSH ONE (12:15)
--- NOTE | 2017-03-06 12:35 | HHI.PR ---
Subjective Remarks Patient feels short of breath, especially when laying down flat and when moving. Denies chest pain. Last fever yesterday afternoon w a Tmax of 101.3 F episode of oxygen saturation down to the low 90s overnight. Objective Vitals Vital Signs Date Time Temp Pulse Resp B/P (MAP) Pulse Ox O2 Delivery O2 Flow Rate FiO2 03/06/17 09:20 Nasal Cannula 2.00 03/06/17 08:38 98.8 91 16 159/80 (106) 96 03/06/17 00:00 98.3 90 18 133/73 (93) 91 03/05/17 21:45 94 Nasal Cannula 2.00 03/05/17 21:05 86 03/05/17 20:34 96 Nasal Cannula 2.00 03/05/17 20:00 98.6 83 18 136/66 (89) 96 03/05/17 17:23 101.3 98 24 155/79 (104) 100 03/05/17 15:36 99.0 92 22 143/71 (95) 96 03/05/17 13:16 92 Nasal Cannula 2.00 I/O 03/05/17 03/05/17 03/05/17 03/06/17 03/06/17 03/06/17 07:00 15:00 23:00 07:00 15:00 23:00 Intake Total 2166 ml 550 ml 100 ml 100 ml Output Total 200 ml Balance 2166 ml 550 ml -200 ml 100 ml 100 ml Intake Oral 100 ml IV Total 2166 ml 550 ml 100 ml Output Urine Total 200 ml Result Diagram: 03/05/17 0542 03/06/17 0550 Imaging Last Impressions Chest X-Ray 03/04/17 0000 Signed Impressions: Service Date/Time: Saturday, March 04, 2017 23:07 - CONCLUSION: 1. Basilar and dependent atelectasis in the lungs. No pneumothorax or significant effusion. Deo Edmondson MD Objective Remarks AAOx3 mild tachypnea when lying down and talking Diffuse expiratory wheezing BL especially heard when coughing S1S2 RRR, no MRG Procedures none Medications and IVs Current Medications Medications (Trade) Dose Ordered Sig/Edwin Route Start Time Stop Time Status Last Admin (NS Flush) 2 ml UNSCH PRN IV FLUSH 03/02/17 13:45 (NS Flush) 2 ml BID IV FLUSH 03/02/17 21:00 03/06/17 09:53 (Tylenol) 650 mg Q4H PRN PO 03/02/17 13:45 03/05/17 17:31 (Zofran Inj) 4 mg Q6H PRN IVP 03/02/17 13:45 (Lovenox Inj) 40 mg Q24H SQ 03/02/17 18:00 03/05/17 16:59 ([place] 5-325 Mg) 1 tab Q4H PRN PO 03/02/17 13:45 03/05/17 06:35 ([place] 10-325 Mg) 1 tab Q4H PRN PO 03/02/17 13:45 03/04/17 15:58 (Narcan Inj) 0.4 mg UNSCH PRN IV 03/02/17 13:45 (Senokot) 17.2 mg Q12H PRN PO 03/02/17 13:45 03/06/17 09:52 (Lactulose Liq) 30 ml DAILY PRN PO 03/02/17 13:45 (D50w (Vial) Inj) 50 ml UNSCH PRN IV 03/02/17 15:00 (Glucagon Inj) 1 mg UNSCH PRN OTHER 03/02/17 15:00 (NovoLOG SUPPLEMENTAL SCALE) 1 ACHS SLIDING SCALE SQ 03/02/17 16:00 03/06/17 08:56 (Lactinex) 1 tab TID PO 03/02/17 18:00 03/06/17 08:47 Ceftriaxone Sodium 2000 mg/ Sodium Chloride 100 ml @ 200 mls/hr Q24H IV 03/04/17 10:00 03/06/17 08:47 (Tums Chew) 500 mg Q12HR CHEW 03/04/17 21:00 03/06/17 08:47 (Levemir Inj) 5 units Q12HR SQ 03/04/17 10:00 03/06/17 08:53 (Duoneb Neb) 1 ampule Q4HR NEB PRN NEB 03/05/17 13:30 03/05/17 21:44 (Duoneb Neb) 1 ampule Q6HR WHILE AWAKE NEB NEB 03/06/17 08:15 Urinary Catheter: No Vascular Central Line Catheter: No A/P Problem List: (1) Pyelonephritis ICD Code: N12 - Tubulo-interstitial nephritis, not specified as acute or chronic (2) Sepsis ICD Code: A41.9 - Sepsis, unspecified organism (3) UTI (urinary tract infection) ICD Code: N39.0 - Urinary tract infection, site not specified (4) HTN (hypertension) ICD Code: I10 - Essential (primary) hypertension (5) Diabetes mellitus type 2 in obese ICD Code: E11.69 - Type 2 diabetes mellitus with other specified complication; E66.9 - Obesity, unspecified (6) Hypokalemia ICD Code: E87.6 - Hypokalemia Assessment and Plan 61-year-old female admitted with UTI, pyelonephritis, and sepsis Sepsis due to pyelonephritis/UTIEscherichia coli bacteremia On Rocephin IV Repeat blood culture no growth for 24 hours. Initial blood culture showing Escherichia coli pansensitive Follow vital signs Follow renal function 03/06 Fluids discontinued 03/05. Continue AP antibiotics as per ID recommendations. Patient likely on IV Rocephin. Continue to follow up blood cultures which so far are negative to date. CT abdomen and pelvis ordered by infectious disease still pending as well as MRI of the lumbar spine. Metabolic encephalopathy-resolved Related to infection and sepsis Treat infection as above Hypocalcemia -Status post Calcium gluconate 2 g IV now and continue Tums twice a day. Telemetry. 03/06 Calcium levels within normal range. Diabetes mellitus type 2 Metformin held on admission. Patient started on Levemir 5 units of tenderness twice a day due to severe hyperglycemia. Patient still with severe hyperglycemia. I will increase Levemir to 10 units subcutaneously twice a day. Continue SSI with insulin NovoLog and diabetic diet. Wheezing 03/06 chest x-ray showed pulmonary vascular congestion. Possible cardiac asthma versus rhonchi hyperreactivity. I will start the patient on IV Solu-Medrol 60 mg IV every 6 hours. Continue duo nebs scheduled and as needed. I will also start the patient on IV Lasix 40 mg IV twice a day. Hypertension BP seems to be labile. I will resume the patient's home lisinopril 5 mg by mouth daily. Hyperlipidemia Hypothyroidism 03/06 Resume home levothyroxine. Check TSH and free t4. Follows in outpatient DVT prophylaxis Lovenox SCDs Discharge Planning Continue to monitor in the medical floor. Patient with sob and pulmonary vascular congestion. CT abdomen and pelvis as well as MRI lumbar spine pending. Problem Qualifiers (1) Sepsis: Qualified Codes: A41.51 - Sepsis due to Escherichia coli [e. coli] Danish Overton MD Mar 06, 2017 12:35
[2017-03-06] MEDS: METFORMIN HOLD POST IV CONTRAST SCH (12:45)
[2017-03-06] MEDS ORDERED: IOHEXOL 350 MG/ML 10 ML VIAL (for RAD DIAG) IVCONTRAST ONE (12:56)
--- NOTE | 2017-03-06 13:26 | RADRPT ---
EXAM DATE/TIME: 03/06/2017 12:44 [facility] COMPARISON: CT ABDOMEN & PELVIS W/O CONTRAST, March 02, 2017, 11:13. INDICATIONS : Right abdominal pain. Fever. Abscess vs hydronephrosis. IV CONTRAST: 85 cc Omnipaque 350 (iohexol) IV ORAL CONTRAST: No oral contrast ingested. RADIATION DOSE: 21.61 CTDIvol (mGy) MEDICAL HISTORY : Diabetes mellitus type 2. Hypertension. SURGICAL HISTORY : Hysterectomy. ENCOUNTER: Initial ACUITY: 4 - 6 days PAIN SCALE: 3/10 LOCATION: Right abdomen. TECHNIQUE: Volumetric scanning of the abdomen and pelvis was performed. Using automated exposure control and ad justment of the mA and/or kV according to patient size, radiation dose was kept as low as reasonably achievable to obtain optimal diagnostic quality images. DICOM format image data is available electro nically for review and comparison. FINDINGS: LOWER LUNGS: Small bilateral pleural effusions and mild associated compressive atelectasis at the lung bases. LIVER: Homogeneous diffusely decreased density without lesion. There is no dilation of the biliary tree. N o calcified gallstones. SPLEEN: Normal size without lesion. PANCREAS: Within normal limits. KIDNEYS: Redemonstration of small nonobstructing calcified calyceal calculi in the right kidney measuring 2-3 mm similar to recent exam. There is also a stable 2 mm nonobstructing calcified calyceal calculus in the mid left kidney. Redemonstration of mild perinephric stranding, slightly more probably on the rig ht. There is subtle heterogeneous enhancement of the anterior mid right kidney. Kidneys otherwise are are unremarkable without significant hydronephrosis or mass. ADRENAL GLANDS: Within normal limits. VASCULAR: Moderate atherosclerotic calcifications of the infrarenal aorta which is otherwise patent. BOWEL/MESENTERY: Appendix is visualized and normal in appearance. Stool is seen throughout the colon. Bowel otherwise appears unremarkable without evidence for obstruction. No free fluid or drainable fluid collection in the abdomen. ABDOMINAL WALL: Small fat containing periumbilical hernia. RETROPERITONEUM: There is no lymphadenopathy. BLADDER: No wall thickening or mass. REPRODUCTIVE: Within normal limits. INGUINAL: There is no lymphadenopathy or hernia. MUSCULOSKELETAL: No abnormal lytic or blastic bony lesions. Redemonstration of degenerative spondylosis in the lumbar spine. CONCLUSION: 1. Stable bilateral 2-3 mm nonobstructing calyceal renal calculi. Mild asymmetric, right greater then left, perinephric stranding with subtle heterogeneous enhancement in the anterior mid right kidney. Although nonspecific, this finding may be seen with developing pyelonephritis. Clinical correlation i s recommended. 2. Normal appendix. No evidence for abscess in the abdomen. 3. Ancillary findings include hepatic steatosis, small fat containing anterior periumbilical hernia, aortic atherosclerotic disease, degenerative spondylosis of the lumbar spine. Hector Chiu MD on March 06, 2017 at 13:10 Board Certified Radiologist. This report was verified electronically.
[2017-03-06] MEDS: LEVOTHYROXINE SODIUM 150 MCG TAB PO SCH (13:28)
[2017-03-06] MEDS: LISINOPRIL 5 MG TAB PO SCH (13:28)
[2017-03-06] MEDS: ENOXAPARIN SODIUM 40 MG/0.4 ML SYRINGE SQ SCH (17:52)
[2017-03-06] MEDS: FUROSEMIDE 40 MG/4 ML VIAL IV PUSH SCH (17:54)
[2017-03-06] MEDS ORDERED: LORazepam 2 MG/ML VIAL IV PUSH ONE (19:15)
[2017-03-06] MEDS ORDERED: RESP: ALBUTEROL 2.5 MG/IPRATROPIUM 0.5 MG NEB (SCH) NEB (22:00)
[2017-03-07] VITALS (9 sets, daily range): BP systolic 127–134; BP diastolic 61–78; PULSE 73–103; RESP 20–24; TEMP 97–99.1; O2SAT 87–97
[2017-03-07] MEDS: LEVOTHYROXINE SODIUM 150 MCG TAB PO SCH (06:30)
[2017-03-07 06:50] LABS: AUTOMATED NEUTROPHIL # 9.3 TH/MM3 (1.8-7.7); BASOPHIL % 0.4 % (0.0-2.0); EOSINOPHIL # 0.1 TH/MM3 (0-0.4); EOSINOPHIL % 1.1 % (0.0-4.0); HEMATOCRIT 28.6 % (35.0-46.0); HEMO FLAGS DIFF FINAL; LYMPH % 17.7 % (9.0-44.0); LYMPHOCYTE # 2.2 TH/MM3 (1.0-4.8); MEAN CORPUSCULAR HEMOGLOBIN 27.7 PG (27.0-34.0); MEAN CORPUSCULAR HGB CONC 33.4 % (32.0-36.0); MONO % 5.7 % (0.0-8.0); NEUT % 75.1 % (16.0-70.0); PLATELET COUNT 285 TH/MM3 (150-450); RED BLOOD COUNT 3.45 MIL/MM3 (4.00-5.30); RED CELL DISTRIBUTION WIDTH 14.5 % (11.6-17.2); WHITE BLOOD COUNT 12.3 TH/MM3 (4.0-11.0)
[2017-03-07 07:02] LABS: MAGNESIUM 2.1 MG/DL (1.5-2.5)
[2017-03-07] MEDS: RESP: ALBUTEROL 2.5 MG/IPRATROPIUM 0.5 MG NEB (SCH) NEB ×3 (07:52→19:46)
[2017-03-07] MEDS: INSULIN ASPART SUPPLEMENTAL SCALE SQ SCH ×4 (08:00→21:37)
[2017-03-07] MEDS: INSULIN DETEMIR 100 UNITS/ML VIAL SQ SCH ×2 (09:00→21:37)
[2017-03-07] MEDS: SODIUM CHLORIDE 0.9% FLUSH 10 ML FLUSH IV FLUSH SCH ×2 (09:19→21:37)
[2017-03-07] MEDS: CALCIUM CARBONATE 500 MG CHEWABLE TAB CHEW SCH ×2 (09:20→21:37)
[2017-03-07] MEDS: cefTRIAXone INJ 2,000 MG in SODIUM CHLORIDE 0.9% INJ 100 ML IV SCH (09:20)
[2017-03-07] MEDS: FUROSEMIDE 40 MG/4 ML VIAL IV PUSH SCH ×2 (09:20→17:32)
[2017-03-07] MEDS: LISINOPRIL 5 MG TAB PO SCH (09:21)
[2017-03-07] MEDS: LACTOBACILLUS ACIDOPHILUS TAB PO SCH ×3 (09:21→17:31)
[2017-03-07] MEDS: PRAVASTATIN SOD 20 MG TAB PO SCH (09:21)
[2017-03-07] MEDS: INSULIN ASPART 1,000 UNITS/10 ML VIAL SQ SCH ×2 (12:00→17:00)
[2017-03-07 12:29] LABS: POTASSIUM 3.1 MEQ/L (3.5-5.1)
[2017-03-07 12:33] LABS: BICARBONATE 28.9 MEQ/L (21.0-32.0)
[2017-03-07 12:37] LABS: INDIRECT BILIRUBIN 0.2 MG/DL (0.0-0.8); TOTAL BILIRUBIN ADULT 0.4 MG/DL (0.2-1.0)
[2017-03-07] MEDS: METFORMIN HOLD POST IV CONTRAST SCH (12:45)
--- NOTE | 2017-03-07 15:24 | HHI.PR ---
Subjective Remarks No further fevers since 03/05 denies cough, diarrhea, nausea or vomiting Objective Vitals Vital Signs Date Time Temp Pulse Resp B/P (MAP) Pulse Ox O2 Delivery O2 Flow Rate FiO2 03/07/17 12:00 97.3 75 20 127/68 (87) 97 03/07/17 08:35 95 Nasal Cannula 2.00 03/07/17 08:00 97.0 73 24 129/67 (87) 96 03/07/17 07:53 95 03/07/17 04:00 98.0 76 22 127/64 (85) 94 03/07/17 00:00 99.1 100 22 134/78 (96) 95 03/06/17 21:29 95 Nasal Cannula 2.00 03/06/17 20:00 98.6 100 22 136/66 (89) 95 03/06/17 19:37 93 Nasal Cannula 2.00 03/06/17 18:00 98.1 100 18 130/66 (87) 96 I/O 03/06/17 03/06/17 03/06/17 03/07/17 03/07/17 03/07/17 07:00 15:00 23:00 07:00 15:00 23:00 Intake Total 100 ml 100 ml Balance 100 ml 100 ml Intake Oral 100 ml IV Total 100 ml Result Diagram: 03/07/1760403/07/17604 Imaging Last Impressions Abdomen/Pelvis CT 03/06/17 0000 Signed Impressions: Service Date/Time: Monday, March 06, 2017 12:44 - CONCLUSION: 1. Stable bilateral 2-3 mm nonobstructing calyceal renal calculi. Mild asymmetric, right greater then left, perinephric stranding with subtle heterogeneous enhancement in the anterior mid right kidney. Although nonspecific, this finding may be seen with developing pyelonephritis. Clinical correlation is recommended. 2. Normal appendix. No evidence for abscess in the abdomen. 3. Ancillary findings include hepatic steatosis, small fat containing anterior periumbilical hernia, aortic atherosclerotic disease, degenerative spondylosis of the lumbar spine. Hector Chiu MD Chest X-Ray 03/04/17 0000 Signed Impressions: Service Date/Time: Saturday, March 04, 2017 23:07 - CONCLUSION: 1. Basilar and dependent atelectasis in the lungs. No pneumothorax or significant effusion. Deo Edmondson MD Objective Remarks AAOx3 mild tachypnea when lying down and talking Diffuse expiratory wheezing BL especially heard when coughing S1S2 RRR, no MRG Procedures none Medications and IVs Current Medications Medications (Trade) Dose Ordered Sig/Edwin Route Start Time Stop Time Status Last Admin (NS Flush) 2 ml UNSCH PRN IV FLUSH 03/02/17 13:45 (NS Flush) 2 ml BID IV FLUSH 03/02/17 21:00 03/07/17 09:19 (Tylenol) 650 mg Q4H PRN PO 03/02/17 13:45 03/05/17 17:31 (Zofran Inj) 4 mg Q6H PRN IVP 03/02/17 13:45 (Lovenox Inj) 40 mg Q24H SQ 03/02/17 18:00 03/06/17 17:52 ([place] 5-325 Mg) 1 tab Q4H PRN PO 03/02/17 13:45 03/05/17 06:35 ([place] 10-325 Mg) 1 tab Q4H PRN PO 03/02/17 13:45 03/04/17 15:58 (Narcan Inj) 0.4 mg UNSCH PRN IV 03/02/17 13:45 (Senokot) 17.2 mg Q12H PRN PO 03/02/17 13:45 03/06/17 09:52 (Lactulose Liq) 30 ml DAILY PRN PO 03/02/17 13:45 (D50w (Vial) Inj) 50 ml UNSCH PRN IV 03/02/17 15:00 (Glucagon Inj) 1 mg UNSCH PRN OTHER 03/02/17 15:00 (NovoLOG SUPPLEMENTAL SCALE) 1 ACHS SLIDING SCALE SQ 03/02/17 16:00 03/07/17 12:00 (Lactinex) 1 tab TID PO 03/02/17 18:00 03/07/17 12:09 Ceftriaxone Sodium 2000 mg/ Sodium Chloride 100 ml @ 200 mls/hr Q24H IV 03/04/17 10:00 03/07/17 09:20 (Tums Chew) 500 mg Q12HR CHEW 03/04/17 21:00 03/07/17 09:20 (Duoneb Neb) 1 ampule Q4HR NEB PRN NEB 03/05/17 13:30 03/05/17 21:44 (Duoneb Neb) 1 ampule Q6HR WHILE AWAKE NEB NEB 03/06/17 08:15 03/07/17 14:00 (Lasix Inj) 40 mg BID@09,18 IV PUSH 03/06/17 18:00 03/07/17 09:20 (Synthroid) 150 mcg DAILY@0600 PO 03/06/17 12:30 03/07/17 06:30 (Prinivil) 5 mg DAILY PO 03/06/17 12:30 03/07/17 09:21 (Pravachol) 20 mg DAILY PO 03/07/17 09:00 03/07/17 09:21 (Levemir Inj) 10 units Q12HR SQ 03/06/17 21:00 03/07/17 09:00 Miscellaneous Information HOLD METFORMIN FOR... Q24H .XX 03/06/17 12:45 03/08/17 12:44 (NovoLOG INJ) 7 units TIDAC SQ 03/07/17 12:00 03/07/17 12:00 A/P Problem List: (1) Pyelonephritis ICD Code: N12 - Tubulo-interstitial nephritis, not specified as acute or chronic (2) Sepsis ICD Code: A41.9 - Sepsis, unspecified organism (3) UTI (urinary tract infection) ICD Code: N39.0 - Urinary tract infection, site not specified (4) HTN (hypertension) ICD Code: I10 - Essential (primary) hypertension (5) Diabetes mellitus type 2 in obese ICD Code: E11.69 - Type 2 diabetes mellitus with other specified complication; E66.9 - Obesity, unspecified (6) Hypokalemia ICD Code: E87.6 - Hypokalemia Assessment and Plan 61-year-old female admitted with UTI, pyelonephritis, and sepsis Sepsis due to pyelonephritis/UTIEscherichia coli bacteremia On Rocephin IV Repeat blood culture no growth for 24 hours. Initial blood culture showing Escherichia coli pansensitive Follow vital signs Follow renal function 03/06 Fluids discontinued 03/05. Continue antibiotics as per ID recommendations. Patient currentlyon IV Rocephin. Continue to follow up blood cultures which so far are negative to date. 03/[address] abdomen and pelvis shows changes consistent with pyelonephritis. Sepsis seems to be improving with no further fevers 2 days. Metabolic encephalopathy-resolved Related to infection and sepsis Treat infection as above Hypocalcemia -Status post Calcium gluconate 2 g IV now and continue Tums twice a day. Telemetry. 03/06 Calcium levels within normal range. Diabetes mellitus type 2 Metformin held on admission. Patient started on Levemir 5 units of Levemir twice a day due to severe hyperglycemia. Patient still with severe hyperglycemia. I will increase Levemir to 10 units subcutaneously twice a day. Continue SSI with insulin NovoLog and diabetic diet. 03/07 patient with severe hyperglycemia. Continue Levemir 10 units subcutaneously twice a day, add prandial insulin with insulin NovoLog 7 units 3 times a day before meals. Continue SSI with insulin NovoLog and diabetic diet. BL Wheezing 03/06 chest x-ray showed pulmonary vascular congestion. Possible cardiac asthma versus rhonchi hyperreactivity. Wheezing now much improved and likely due to fluid overload. Patient started on Furosemide 40 mg IV BID which will be continued. Hypertension 03/08 BP more stable. Continue lisinopril 5 mg po daily. Hyperlipidemia Hypothyroidism 03/06 Resume home levothyroxine. Check TSH and free t4. Follows in outpatient DVT prophylaxis Lovenox SCDs Discharge Planning Continue to monitor in the medical floor.MRI lumbar spine pending. Problem Qualifiers (1) Sepsis: Qualified Codes: A41.51 - Sepsis due to Escherichia coli [e. coli] Danish Overton MD Mar 07, 2017 15:24
[2017-03-07] MEDS: POTASSIUM CHLORIDE 10 MEQ CONTROLLED RELEASE TAB PO ONE ×2 (15:30→16:22)
[2017-03-07] MEDS ORDERED: LORazepam 2 MG/ML VIAL IV PUSH ONE (16:15)
[2017-03-07] MEDS ORDERED: GADODIAMIDE PF 287 MG/ML 20 ML VIAL (for RAD MRI) IVCONTRAST ONE (17:00)
[2017-03-07] MEDS: ENOXAPARIN SODIUM 40 MG/0.4 ML SYRINGE SQ SCH (17:32)
--- NOTE | 2017-03-07 17:57 | RADRPT ---
EXAM DATE/TIME: 03/07/2017 17:15 [place] COMPARISON: No previous studies available for comparison. INDICATIONS : Abscess. Epidural abscess and lower back pain. CONTRAST: 19 cc Omniscan (gadodiamide) IV MEDICAL HISTORY : Diabetes mellitus type 2. Hypertension. SURGICAL HISTORY : Tonsillectomy. Hysterectomy. Coronary artery stent. ENCOUNTER: Initial ACUITY: 3 day PAIN SCORE: 7/10 LOCATION: Lower back. TECHNIQUE: Multiplanar multisequence MRI of the lumbar spine was performed with and without contrast. FINDINGS: The most caudal appearing lumbar vertebra is numbered as L5. Sagittal T1, T2 and postcontrast T1-weighted imaging is provided. The sagittal imaging demonstrates a dequate alignment of the lumbar vertebral bodies. There is a degenerated disc with disc protrusion at L4-5. This will be further assessed by axial imaging. No abnormal marrow signal is seen within the v ertebral bodies. No abnormal enhancement to suggest epidural abscess is identified. T12-L1: The thecal sac has a normal diameter. No evidence of disc bulge or protrusion. The neural foramina are patent bilaterally. L1-L2: The thecal sac has a normal diameter. No evidence of disc bulge or protrusion. The neural foramina are patent bilaterally. L2-L3: The thecal sac has a normal diameter. No evidence of disc bulge or protrusion. The neural foramina are patent bilaterally. L3-L4: The thecal sac has a normal diameter. No evidence of disc bulge or protrusion. The neural foramina are patent bilaterally. There is mild facet arthritis bilaterally. L4-L5: There is broad-based disc protrusion which effaces the ventral thecal sac. This is slightly eccentric towards the left. There is disc material projecting into the lateral recess and base of the foramina on the left. There is moderate facet arthritis bilaterally. There is degenerative facet and ligament ous hypertrophy. Overall, this results in a mild degree of narrowing of the thecal sac. The foramina on the right appears adequate. L5-S1: The thecal sac has a normal diameter. No evidence of disc bulge or protrusion. The neural foramina are patent bilaterally. There is facet arthritis bilaterally. CONCLUSION: 1. No findings to indicate epidural abscess identified. 2. Broad-based, slightly left sided disc protrusion at L4-5. 3. Facet arthritis in the lower lumbar spine as above. Pb Bird MD on March 07, 2017 at 17:51 Board Certified Radiologist. This report was verified electronically.
[2017-03-08] VITALS (11 sets, daily range): BP systolic 118–155; BP diastolic 60–95; PULSE 79–100; RESP 18–20; TEMP 96.4–98.7; O2SAT 94–96
[2017-03-08] MEDS: LEVOTHYROXINE SODIUM 150 MCG TAB PO SCH (06:40)
[2017-03-08 07:09] LABS: HEMATOCRIT 29.4 % (35.0-46.0); MEAN CORPUSCULAR HEMOGLOBIN 28.3 PG (27.0-34.0); MEAN CORPUSCULAR HGB CONC 33.6 % (32.0-36.0); PLATELET COUNT 309 TH/MM3 (150-450); RED CELL DISTRIBUTION WIDTH 15.1 % (11.6-17.2); REVIEW FLAG FINAL; WHITE BLOOD COUNT 13.7 TH/MM3 (4.0-11.0)
[2017-03-08 07:35] LABS: INDIRECT BILIRUBIN 0.2 MG/DL (0.0-0.8); TOTAL BILIRUBIN ADULT 0.4 MG/DL (0.2-1.0)
[2017-03-08 07:39] LABS: POTASSIUM 2.9 MEQ/L (3.5-5.1)
[2017-03-08] MEDS: RESP: ALBUTEROL 2.5 MG/IPRATROPIUM 0.5 MG NEB (SCH) NEB ×3 (08:11→19:33)
[2017-03-08] MEDS ORDERED: POTASSIUM CHLORIDE 20 MEQ CONTROLLED RELEASE TAB PO ONE (08:15)
[2017-03-08] MEDS: CALCIUM CARBONATE 500 MG CHEWABLE TAB CHEW SCH ×2 (08:35→22:07)
[2017-03-08] MEDS: FUROSEMIDE 40 MG/4 ML VIAL IV PUSH SCH ×2 (08:35→17:35)
[2017-03-08] MEDS: LACTOBACILLUS ACIDOPHILUS TAB PO SCH ×3 (08:35→17:34)
[2017-03-08] MEDS: PRAVASTATIN SOD 20 MG TAB PO SCH (08:35)
[2017-03-08] MEDS: LISINOPRIL 5 MG TAB PO SCH (08:35)
[2017-03-08] MEDS: SODIUM CHLORIDE 0.9% FLUSH 10 ML FLUSH IV FLUSH SCH ×2 (08:36→22:17)
[2017-03-08] MEDS: INSULIN DETEMIR 100 UNITS/ML VIAL SQ SCH ×2 (08:36→21:00)
[2017-03-08] MEDS: INSULIN ASPART 1,000 UNITS/10 ML VIAL SQ SCH ×2 (08:44→17:45)
[2017-03-08] MEDS: INSULIN ASPART SUPPLEMENTAL SCALE SQ SCH ×4 (08:45→21:00)
[2017-03-08 09:39] LABS: FREE T4 1.35 NG/DL (0.76-1.46)
[2017-03-08] MEDS: POTASSIUM CHLORIDE 20 MEQ CONTROLLED RELEASE TAB PO SCH ×2 (10:40→22:08)
[2017-03-08] MEDS: cefTRIAXone INJ 2,000 MG in SODIUM CHLORIDE 0.9% INJ 100 ML IV SCH (10:42)
--- NOTE | 2017-03-08 12:29 | HHI.PR ---
Subjective Remarks The patient denies chest pain, shortness of breath much improved. Denies wheezing, cough White count trending up now 13K denies fevers and chills Objective Vitals Vital Signs Date Time Temp Pulse Resp B/P (MAP) Pulse Ox O2 Delivery O2 Flow Rate FiO2 03/08/17 12:00 98.1 82 20 118/80 (93) 95 03/08/17 08:45 95 Nasal Cannula 3.00 03/08/17 08:13 94 Nasal Cannula 3.00 03/08/17 08:00 98.0 86 20 152/95 (114) 95 03/08/17 04:00 Nasal Cannula 3.00 03/08/17 04:00 96.4 80 20 120/66 (84) 94 03/08/17 00:00 Nasal Cannula 3.00 03/08/17 00:00 98.7 84 20 155/80 (105) 94 03/07/17 21:09 89 03/07/17 20:00 99.1 103 20 130/61 (84) 87 03/07/17 20:00 Nasal Cannula 3.00 03/07/17 19:49 93 Nasal Cannula 3.00 03/07/17 16:00 97.3 75 22 127/69 (88) 97 I/O 03/07/17 03/07/17 03/07/17 03/08/17 03/08/17 03/08/17 07:00 15:00 23:00 07:00 15:00 23:00 Intake Total 480 ml Balance 480 ml Intake Oral 480 ml # Voids 2 # Bowel Movements 0 Result Diagram: 03/08/17 0600 03/08/17 0600 Imaging Last Impressions Lumbar Spine MRI 03/07/17 0000 Signed Impressions: Service Date/Time: February 17:15 - CONCLUSION: 1. No findings to indicate epidural abscess identified. 2. Broad-based, slightly left sided disc protrusion at L4-5. 3. Facet arthritis in the lower lumbar spine as above. Pb Bird MD Abdomen/Pelvis CT 03/06/17 0000 Signed Impressions: Service Date/Time: Monday, March 06, 2017 12:44 - CONCLUSION: 1. Stable bilateral 2-3 mm nonobstructing calyceal renal calculi. Mild asymmetric, right greater then left, perinephric stranding with subtle heterogeneous enhancement in the anterior mid right kidney. Although nonspecific, this finding may be seen with developing pyelonephritis. Clinical correlation is recommended. 2. Normal appendix. No evidence for abscess in the abdomen. 3. Ancillary findings include hepatic steatosis, small fat containing anterior periumbilical hernia, aortic atherosclerotic disease, degenerative spondylosis of the lumbar spine. Hector Chiu MD Chest X-Ray 03/04/17 0000 Signed Impressions: Service Date/Time: Saturday, March 04, 2017 23:07 - CONCLUSION: 1. Basilar and dependent atelectasis in the lungs. No pneumothorax or significant effusion. Deo Edmondson MD Objective Remarks AAOx3 mild tachypnea when lying down and talking Diffuse expiratory wheezing BL especially heard when coughing S1S2 RRR, no MRG Procedures none Medications and IVs Current Medications Medications (Trade) Dose Ordered Sig/[place] Route Start Time Stop Time Status Last Admin (NS Flush) 2 ml UNSCH PRN IV FLUSH 03/02/17 13:45 (NS Flush) 2 ml BID IV FLUSH 03/02/17 21:00 03/08/17 08:36 (Tylenol) 650 mg Q4H PRN PO 03/02/17 13:45 03/05/17 17:31 (Zofran Inj) 4 mg Q6H PRN IVP 03/02/17 13:45 (Lovenox Inj) 40 mg Q24H SQ 03/02/17 18:00 03/07/17 17:32 ([place] 5-325 Mg) 1 tab Q4H PRN PO 03/02/17 13:45 03/05/17 06:35 ([place] 10-325 Mg) 1 tab Q4H PRN PO 03/02/17 13:45 03/04/17 15:58 (Narcan Inj) 0.4 mg UNSCH PRN IV 03/02/17 13:45 (Senokot) 17.2 mg Q12H PRN PO 03/02/17 13:45 03/06/17 09:52 (Lactulose Liq) 30 ml DAILY PRN PO 03/02/17 13:45 (D50w (Vial) Inj) 50 ml UNSCH PRN IV 03/02/17 15:00 (Glucagon Inj) 1 mg UNSCH PRN OTHER 03/02/17 15:00 (NovoLOG SUPPLEMENTAL SCALE) 1 ACHS SLIDING SCALE SQ 03/02/17 16:00 03/08/17 08:45 (Lactinex) 1 tab TID PO 03/02/17 18:00 03/08/17 08:35 Ceftriaxone Sodium 2000 mg/ Sodium Chloride 100 ml @ 200 mls/hr Q24H IV 03/04/17 10:00 03/08/17 10:42 (Tums Chew) 500 mg Q12HR CHEW 03/04/17 21:00 03/08/17 08:35 (Duoneb Neb) 1 ampule Q4HR NEB PRN NEB 03/05/17 13:30 03/05/17 21:44 (Duoneb Neb) 1 ampule Q6HR WHILE AWAKE NEB NEB 03/06/17 08:15 03/08/17 08:11 (Lasix Inj) 40 mg BID@09,18 IV PUSH 03/06/17 18:00 03/08/17 08:35 (Synthroid) 150 mcg DAILY@0600 PO 03/06/17 12:30 03/08/17 06:40 (Prinivil) 5 mg DAILY PO 03/06/17 12:30 03/08/17 08:35 (Pravachol) 20 mg DAILY PO 03/07/17 09:00 03/08/17 08:35 (Levemir Inj) 10 units Q12HR SQ 03/06/17 21:00 03/08/17 08:36 Miscellaneous Information HOLD METFORMIN FOR... Q24H .XX 03/06/17 12:45 03/08/17 12:44 (NovoLOG INJ) 7 units TIDAC SQ 03/07/17 12:00 03/08/17 08:44 (KCl) 20 meq Q12HR PO 03/08/17 09:00 03/08/17 10:40 Urinary Catheter: No Vascular Central Line Catheter: No A/P Problem List: (1) Pyelonephritis ICD Code: N12 - Tubulo-interstitial nephritis, not specified as acute or chronic Status: Acute (2) Sepsis ICD Code: A41.9 - Sepsis, unspecified organism Status: Resolved (3) UTI (urinary tract infection) ICD Code: N39.0 - Urinary tract infection, site not specified Status: Acute (4) HTN (hypertension) ICD Code: I10 - Essential (primary) hypertension Status: Chronic (5) Diabetes mellitus type 2 in obese ICD Code: E11.69 - Type 2 diabetes mellitus with other specified complication; E66.9 - Obesity, unspecified Status: Chronic (6) Hypokalemia ICD Code: E87.6 - Hypokalemia Status: Acute Assessment and Plan 61-year-old female admitted with UTI, pyelonephritis, and sepsis Sepsis due to pyelonephritis/UTIEscherichia coli bacteremia On Rocephin IV Repeat blood culture no growth for 24 hours. Initial blood culture showing Escherichia coli pansensitive Follow vital signs Follow renal function 03/06 Fluids discontinued 03/05. Continue antibiotics as per ID recommendations. Patient currentlyon IV Rocephin. Continue to follow up blood cultures which so far are negative to date. 03/[address] abdomen and pelvis shows changes consistent with pyelonephritis. Sepsis seems to be improving with no further fevers 2 days. 03/08 continue antibiotics as per ID. The patient currently on Rocephin. Lumbar spine MRI as described above does not show any findings to indicate epidural abscess. Metabolic encephalopathy-resolved Related to infection and sepsis Treat infection as above Hypocalcemia -Status post Calcium gluconate 2 g IV now and continue Tums twice a day. Telemetry. 03/06 Calcium levels within normal range. Diabetes mellitus type 2 Metformin held on admission. Patient started on Levemir 5 units of Levemir twice a day due to severe hyperglycemia. Patient still with severe hyperglycemia. I will increase Levemir to 10 units subcutaneously twice a day. Continue SSI with insulin NovoLog and diabetic diet. 03/07 patient with severe hyperglycemia. Continue Levemir 10 units subcutaneously twice a day, add prandial insulin with insulin NovoLog 7 units 3 times a day before meals. Continue SSI with insulin NovoLog and diabetic diet. 03/08 blood sugar still severely elevated blood sugars as high as 300. I will increase the insulin Levemir to 20 mg subcutaneous twice a day and the prandial insulin NovoLog from 7 units to 10 units 3 times a day before meals. BL Wheezing chest x-ray showed pulmonary vascular congestion. Possible cardiac asthma versus rhonchi hyperreactivity. Wheezing now much improved and likely due to fluid overload. Patient started on Furosemide 40 mg IV BID which will be continued. 03/08 Continue IV lasix. repeat cxr in am. Hypertension 03/08 BP more stable. Continue lisinopril 5 mg po daily. Hyperlipidemia Hypothyroidism 03/06 Resume home levothyroxine. 03/08 TSH and free T4 normal. Continue levothyroxine at same dose. Follows in outpatient DVT prophylaxis Lovenox SCDs Discharge Planning Continue to monitor in the medical floor. Problem Qualifiers (1) Sepsis: Qualified Codes: A41.51 - Sepsis due to Escherichia coli [e. coli] Danish Overton MD Mar 08, 2017 12:29
--- NOTE | 2017-03-08 16:19 | HHI.IDPN ---
Subjective Subjective Remarks Mrs. Meier is a 61-year-old female with PMHx of diabetes mellitus type 2, hypertension, hyperlipidemia, incontinence, hypothyroidism, and history of vaginal bleeding which was treated in 2015. He reports that the last time she had a UTI was approximately a year back. She also reports having had laser hysterectomy a year back. She reports history of urinary incontinence. She denies any other surgical procedures in the urogenital tract. She denies any history of renal stones. Patient reports on the day of admission she was at home and felt extremely weak and her legs buckled. She reportedly was also confused and therefore her called 911. She did not want to be admitted at the local hospital so she presented initially to [place] emergency room where her WBC count was 21.5 blood cultures were drawn which grew Escherichia coli and patient was treated with antibiotics. I'm not sure how the urine was obtained it did look like it was abnormal suggestive of a urinary tract infection but the organism was not consistent with what is growing in her blood. Patient also reports having lower back pain. She denies any worsening incontinence or lack of rectal tone. She denies any lower extremity weakness. Sepsis workup was initiated and patient was transferred to [place] for admission. ID is consulted for evaluation and Mment of Sepsis, E.coli bacteremia and possible pyelonephritis. Overnight events reviewed. No fevers No rash No diarrhea Antibiotics Ceftriaxone IV Lines Line sites with no e.o infection Past Medical History Diabetes mellitus type 2 Hypertension Hyperlipidemia Hypothyroidism History of vaginal bleeding (resolved with D&C) Incontinence Tonsillectomy Hysterectomy D&C in 2014 Coronary stent Allergies: Coded Allergies: No Known Allergies (Unverified , 03/02/17) Objective . Vital Signs Date Time Temp Pulse Resp B/P (MAP) Pulse Ox O2 Delivery O2 Flow Rate FiO2 03/08/17 14:17 96 Nasal Cannula 2.00 03/08/17 12:00 98.1 82 20 118/80 (93) 95 03/08/17 08:45 95 Nasal Cannula 3.00 03/08/17 08:35 79 03/08/17 08:13 94 Nasal Cannula 3.00 03/08/17 08:00 98.0 86 20 152/95 (114) 95 03/08/17 04:00 Nasal Cannula 3.00 03/08/17 04:00 96.4 80 20 120/66 (84) 94 03/08/17 00:00 Nasal Cannula 3.00 03/08/17 00:00 98.7 84 20 155/80 (105) 94 03/07/17 21:09 89 03/07/17 20:00 99.1 103 20 130/61 (84) 87 03/07/17 20:00 Nasal Cannula 3.00 03/07/17 19:49 93 Nasal Cannula 3.00 03/08/17 03/08/17 03/09/17 15:00 23:00 07:00 Intake Total 100 ml Balance 100 ml IV Total 100 ml . Laboratory Tests Test 03/07/17 06:05 03/08/17 06:00 White Blood Count 12.3 TH/MM3 13.7 TH/MM3 Red Blood Count 3.45 MIL/MM3 3.50 MIL/MM3 Hemoglobin 9.6 GM/DL 9.9 GM/DL Hematocrit 28.6 % 29.4 % Mean Corpuscular Volume 83.0 FL 84.0 FL Mean Corpuscular Hemoglobin 27.7 PG 28.3 PG Mean Corpuscular Hemoglobin Concent 33.4 % 33.6 % Red Cell Distribution Width 14.5 % 15.1 % Platelet Count 285 TH/MM3 309 TH/MM3 Mean Platelet Volume 8.7 FL 8.6 FL Neutrophils (%) (Auto) 75.1 % Lymphocytes (%) (Auto) 17.7 % Monocytes (%) (Auto) 5.7 % Eosinophils (%) (Auto) 1.1 % Basophils (%) (Auto) 0.4 % Neutrophils # (Auto) 9.3 TH/MM3 Lymphocytes # (Auto) 2.2 TH/MM3 Monocytes # (Auto) 0.7 TH/MM3 Eosinophils # (Auto) 0.1 TH/MM3 Basophils # (Auto) 0.0 TH/MM3 CBC Comment DIFF FINAL Differential Comment Laboratory Tests Test 03/07/17 06:05 03/08/17 06:00 Blood Urea Nitrogen 13 MG/DL 18 MG/DL Creatinine 0.75 MG/DL 0.74 MG/DL Random Glucose 225 MG/DL 212 MG/DL Total Protein 7.2 GM/DL 7.1 GM/DL Albumin 2.2 GM/DL 2.2 GM/DL Calcium Level 8.2 MG/DL 8.7 MG/DL Alkaline Phosphatase 189 U/L 179 U/L Aspartate Amino Transf (AST/SGOT) 67 U/L 39 U/L Alanine Aminotransferase (ALT/SGPT) 107 U/L 79 U/L Total Bilirubin 0.4 MG/DL 0.4 MG/DL Direct Bilirubin 0.2 MG/DL 0.2 MG/DL Sodium Level 138 MEQ/L 137 MEQ/L Potassium Level 3.1 MEQ/L 2.9 MEQ/L Chloride Level 99 MEQ/L 97 MEQ/L Carbon Dioxide Level 28.9 MEQ/L 29.0 MEQ/L Anion Gap 10 MEQ/L 11 MEQ/L Estimat Glomerular Filtration Rate 79 ML/MIN 80 ML/MIN Phosphorus Level 2.9 MG/DL Magnesium Level 2.1 MG/DL Indirect Bilirubin 0.2 MG/DL 0.2 MG/DL Free Thyroxine 1.35 NG/DL Thyroid Stimulating Hormone 3rd Gen 3.090 uIU/ML Microbiology Date/Time Source Procedure Growth Status 03/05/17 20:40 Blood Peripheral Aerobic Blood Culture - Preliminary NO GROWTH IN 3 DAYS Resulted 03/05/17 20:40 Blood Peripheral Anaerobic Blood Culture - Preliminary NO GROWTH IN 3 DAYS Resulted 03/05/17 20:30 Blood Peripheral Aerobic Blood Culture - Preliminary NO GROWTH IN 3 DAYS Resulted 03/05/17 20:30 Blood Peripheral Anaerobic Blood Culture - Preliminary NO GROWTH IN 3 DAYS Resulted 03/05/17 20:54 Urine Clean Catch Urine Culture - Final NO GROWTH IN 48 HOURS. Complete Imaging Last Impressions Lumbar Spine MRI 03/07/17 0000 Signed Impressions: Service Date/Time: February 17:15 - CONCLUSION: 1. No findings to indicate epidural abscess identified. 2. Broad-based, slightly left sided disc protrusion at L4-5. 3. Facet arthritis in the lower lumbar spine as above. Pb Bird MD Abdomen/Pelvis CT 03/06/17 0000 Signed Impressions: Service Date/Time: Monday, March 06, 2017 12:44 - CONCLUSION: 1. Stable bilateral 2-3 mm nonobstructing calyceal renal calculi. Mild asymmetric, right greater then left, perinephric stranding with subtle heterogeneous enhancement in the anterior mid right kidney. Although nonspecific, this finding may be seen with developing pyelonephritis. Clinical correlation is recommended. 2. Normal appendix. No evidence for abscess in the abdomen. 3. Ancillary findings include hepatic steatosis, small fat containing anterior periumbilical hernia, aortic atherosclerotic disease, degenerative spondylosis of the lumbar spine. Hector Chiu MD Chest X-Ray 03/04/17 0000 Signed Impressions: Service Date/Time: Saturday, March 04, 2017 23:07 - CONCLUSION: 1. Basilar and dependent atelectasis in the lungs. No pneumothorax or significant effusion. Deo Edmondson MD Physical Exam GENERAL: Obese, well-developed patient, in no apparent distress. SKIN: No rashes, ecchymoses or lesions. Cool and dry. HEAD: Atraumatic. Normocephalic. No temporal or scalp tenderness. EYES: Pupils equal round and reactive. Extraocular motions intact. No scleral icterus. No injection or drainage. ENT: Nose without bleeding, purulent drainage or septal hematoma. Throat without erythema, tonsillar hypertrophy or exudate. Uvula midline. Airway patent. NECK: Trachea midline. Supple, nontender, no meningeal signs. CARDIOVASCULAR: Regular rate and rhythm without murmurs, gallops, or rubs. RESPIRATORY: Clear to auscultation. Breath sounds equal bilaterally. No wheezes , rales, or rhonchi. GASTROINTESTINAL: Abdomen soft, non-tender, nondistended. ? CVA tenderness Right side. MUSCULOSKELETAL: Extremities without clubbing, cyanosis, or edema. No joint tenderness, effusion, or edema noted. No calf tenderness. Negative Homans sign bilaterally. NEUROLOGICAL: Awake and alert. Grossly non focal Psych: cooperative IV line sites with no e.o infection. Assessment & Plan Remarks Sepsis present on admission E.coli bacteremia. R/o Endocarditis. Abnormal UA, normal urogenital gauri 50,000-100,000 CFU. No antibiotics prior to admission Incontinence abnormal LFTs: sepsis, Rocephin, Hepatic steatosis. Recs: DC Ceftriaxone IV Start Levaquin oral. Follow repeat blood cultures x 2 Repeat CXR still on O2 and decreased basilar air entry with cough CT reviewed. Repeat UA no growth. CT Abd/pelvis c/w pyelonephritis and non obstructing renal stones./ MRI L spine with no epidural abscess/osteomyelitis. Findings of lumbar arthritis and disc changes d/w . 2D ECHO negative for endocarditis. Follow LFTs Follow A1C d.w findings of atherosclerotic aortic disease, hepatic steatosis, abnormal LFTs, stones on CT. recommended Colonoscopy (none till date). Due to the E.coli not being present in urine GI source like polyp cancer need to be ruled out. David.w pt spouse and : due to O2 needs, high LFTs follow in hospital. Once improved ok to discharge on total 14 days of Levaquin 750 mg po daily. Will follow prn. I will see patient next on Saturday if any change in clinical condition please call who is on this weekend. time spent in excess of 40 mins. Counseled about DM, weight loss, high protein diet. Need for PCP, Cardiology, GI follow ups outpatient. Patient and spouse thankful of care provided. Talia Souza MD Mar 08, 2017 16:19
[2017-03-08] MEDS ORDERED: LEVOFLOXACIN 750 MG TAB PO SCH (17:00)
--- NOTE | 2017-03-08 17:28 | RADRPT ---
EXAM DATE/TIME: 03/08/2017 17:07 [facility] COMPARISON: CHEST SINGLE AP, March 04, 2017, 23:07. INDICATIONS : Shortness of breath. MEDICAL HISTORY : Diabetes mellitus type 2. Hypertension SURGICAL HISTORY : Tonsillectomy. Hysterectomy. Coronary artery stent ENCOUNTER: Subsequent ACUITY: 4 - 6 days PAIN SCORE: 0/10 LOCATION: Bilateral chest FINDINGS: The heart is mildly enlarged. There is diffuse interstitial prominence which is relatively stable com pared to previous of 03/04/17. Study would suggest a mild degree of congestive failure. No suspicious mass lesions are identified. The visualized bony structures are grossly intact. CONCLUSION: 1. Diffuse interstitial prominence suggesting possible congestive failure appearance is similar to pr evious dated 03/04/17 Pb Bird MD on March 08, 2017 at 17:26 Board Certified Radiologist. This report was verified electronically.
[2017-03-08] MEDS: ENOXAPARIN SODIUM 40 MG/0.4 ML SYRINGE SQ SCH (17:35)
[2017-03-09 01:50] VITALS: BP 136/63; PULSE 81; RESP 24; TEMP 98.9; O2SAT 94
[2017-03-09 05:04] VITALS: BP 126/66; PULSE 73; RESP 20; TEMP 98.7; O2SAT 96
[2017-03-09] MEDS: LEVOTHYROXINE SODIUM 150 MCG TAB PO SCH (05:50)
[2017-03-09 07:08] LABS: AUTOMATED NEUTROPHIL # 9.2 TH/MM3 (1.8-7.7); BASOPHIL # 0.1 TH/MM3 (0-0.2); BASOPHIL % 0.5 % (0.0-2.0); EOSINOPHIL # 0.3 TH/MM3 (0-0.4); EOSINOPHIL % 2.3 % (0.0-4.0); HEMATOCRIT 31.7 % (35.0-46.0); HEMO FLAGS DIFF FINAL; LYMPH % 20.3 % (9.0-44.0); LYMPHOCYTE # 2.6 TH/MM3 (1.0-4.8); MEAN CELL VOLUME 83.3 FL (80.0-100.0); MEAN CORPUSCULAR HEMOGLOBIN 27.3 PG (27.0-34.0); MEAN CORPUSCULAR HGB CONC 32.8 % (32.0-36.0); MONO % 4.3 % (0.0-8.0); NEUT % 72.6 % (16.0-70.0); PLATELET COUNT 392 TH/MM3 (150-450); RED CELL DISTRIBUTION WIDTH 15.2 % (11.6-17.2); WHITE BLOOD COUNT 12.8 TH/MM3 (4.0-11.0)
[2017-03-09 07:18] LABS: CHLORIDE 98 MEQ/L (98-107); POTASSIUM 3.3 MEQ/L (3.5-5.1); SODIUM (NA) 138 MEQ/L (136-145)
[2017-03-09 07:22] LABS: ANION GAP 11 MEQ/L (5-15); BICARBONATE 29.4 MEQ/L (21.0-32.0); BLOOD UREA NITROGEN 20 MG/DL (7-18)
[2017-03-09 07:25] LABS: ALT (GPT) 65 U/L (10-53); AST (GOT) 31 U/L (15-37); GLOMERULAR FILTRATION RATE 70 ML/MIN (>89)
[2017-03-09 07:26] LABS: TOTAL BILIRUBIN ADULT 0.4 MG/DL (0.2-1.0)
[2017-03-09 07:28] LABS: ALKALINE PHOSPHATASE 185 U/L (45-117)
[2017-03-09] MEDS: RESP: ALBUTEROL 2.5 MG/IPRATROPIUM 0.5 MG NEB (SCH) NEB ×2 (07:51→15:51)
[2017-03-09 07:53] VITALS: O2SAT 96
[2017-03-09 08:00] VITALS: BP 142/66; PULSE 84; PULSE 86; RESP 17; TEMP 97.8; O2SAT 94
[2017-03-09] MEDS: INSULIN ASPART SUPPLEMENTAL SCALE SQ SCH ×2 (08:00→13:39)
[2017-03-09] MEDS: INSULIN ASPART 1,000 UNITS/10 ML VIAL SQ SCH ×2 (08:15→12:21)
[2017-03-09] MEDS: CALCIUM CARBONATE 500 MG CHEWABLE TAB CHEW SCH (09:30)
[2017-03-09] MEDS: SODIUM CHLORIDE 0.9% FLUSH 10 ML FLUSH IV FLUSH SCH (09:30)
[2017-03-09] MEDS: POTASSIUM CHLORIDE 20 MEQ CONTROLLED RELEASE TAB PO SCH (09:31)
[2017-03-09] MEDS: LISINOPRIL 5 MG TAB PO SCH (09:31)
[2017-03-09] MEDS: FUROSEMIDE 40 MG/4 ML VIAL IV PUSH SCH (09:31)
[2017-03-09] MEDS: LACTOBACILLUS ACIDOPHILUS TAB PO SCH ×2 (09:31→12:20)
[2017-03-09] MEDS: PRAVASTATIN SOD 20 MG TAB PO SCH (09:31)
[2017-03-09] MEDS: INSULIN DETEMIR 100 UNITS/ML VIAL SQ SCH (09:32)
[2017-03-09 12:00] VITALS: BP 136/75; PULSE 79; RESP 18; TEMP 97.5; O2SAT 95
[2017-03-09 13:10] LABS: HEMOGLOBIN A1a 1.2 %; HEMOGLOBIN Ao 81.6 %; HEMOGLOBIN P3 4.2 %
--- NOTE | 2017-03-09 15:34 | HHI.PR ---
Subjective Remarks as per discussed therapy, the patient decided into the high 80s on ambulation. Patient denies chest pain, shortness of breath. Patient was eager to go home. Objective Vitals Vital Signs Date Time Temp Pulse Resp B/P (MAP) Pulse Ox O2 Delivery O2 Flow Rate FiO2 03/09/17 12:00 97.5 79 18 136/75 (95) 95 03/09/17 08:00 84 03/09/17 08:00 97.8 86 17 142/66 (91) 94 03/09/17 07:53 96 Nasal Cannula 2.00 03/09/17 07:00 94 Nasal Cannula 1.00 03/09/17 05:04 98.7 73 20 126/66 (86) 96 03/09/17 01:50 98.9 81 24 136/63 (87) 94 03/08/17 21:15 98.3 95 18 141/70 (93) 95 03/08/17 20:00 87 03/08/17 19:33 96 Nasal Cannula 2.00 03/08/17 19:00 95 Nasal Cannula 2.00 03/08/17 16:00 96.9 100 20 125/60 (81) 95 I/O 03/08/17 03/08/17 03/08/17 03/09/17 03/09/17 03/09/17 07:00 15:00 23:00 07:00 15:00 23:00 Intake Total 480 ml 100 ml Balance 480 ml 100 ml Intake Oral 480 ml IV Total 100 ml # Voids 2 3 # Bowel Movements 0 0 Result Diagram: 03/09/17 0628 03/09/17 0628 Imaging Last Impressions Chest X-Ray 03/08/17 0000 Signed Impressions: Service Date/Time: Wednesday, March 08, 2017 17:07 - CONCLUSION: 1. Diffuse interstitial prominence suggesting possible congestive failure appearance is similar to previous dated 03/04/17 Pb Bird MD Lumbar Spine MRI 03/07/17 0000 Signed Impressions: Service Date/Time: February 17:15 - CONCLUSION: 1. No findings to indicate epidural abscess identified. 2. Broad-based, slightly left sided disc protrusion at L4-5. 3. Facet arthritis in the lower lumbar spine as above. Pb Bird MD Abdomen/Pelvis CT 03/06/17 0000 Signed Impressions: Service Date/Time: Monday, March 06, 2017 12:44 - CONCLUSION: 1. Stable bilateral 2-3 mm nonobstructing calyceal renal calculi. Mild asymmetric, right greater then left, perinephric stranding with subtle heterogeneous enhancement in the anterior mid right kidney. Although nonspecific, this finding may be seen with developing pyelonephritis. Clinical correlation is recommended. 2. Normal appendix. No evidence for abscess in the abdomen. 3. Ancillary findings include hepatic steatosis, small fat containing anterior periumbilical hernia, aortic atherosclerotic disease, degenerative spondylosis of the lumbar spine. Hector Chiu MD Objective Remarks AAOx3 mild tachypnea when lying down and talking Diffuse expiratory wheezing BL especially heard when coughing S1S2 RRR, no MRG Procedures none Medications and IVs Current Medications Medications (Trade) Dose Ordered Sig/Edwin Route Start Time Stop Time Status Last Admin (NS Flush) 2 ml UNSCH PRN IV FLUSH 03/02/17 13:45 (NS Flush) 2 ml BID IV FLUSH 03/02/17 21:00 03/09/17 09:30 (Tylenol) 650 mg Q4H PRN PO 03/02/17 13:45 03/05/17 17:31 (Zofran Inj) 4 mg Q6H PRN IVP 03/02/17 13:45 (Lovenox Inj) 40 mg Q24H SQ 03/02/17 18:00 03/08/17 17:35 (Joppa 5-325 Mg) 1 tab Q4H PRN PO 03/02/17 13:45 03/05/17 06:35 (Joppa 10-325 Mg) 1 tab Q4H PRN PO 03/02/17 13:45 03/04/17 15:58 (Narcan Inj) 0.4 mg UNSCH PRN IV 03/02/17 13:45 (Senokot) 17.2 mg Q12H PRN PO 03/02/17 13:45 03/06/17 09:52 (Lactulose Liq) 30 ml DAILY PRN PO 03/02/17 13:45 (D50w (Vial) Inj) 50 ml UNSCH PRN IV 03/02/17 15:00 (Glucagon Inj) 1 mg UNSCH PRN OTHER 03/02/17 15:00 (NovoLOG SUPPLEMENTAL SCALE) 1 ACHS SLIDING SCALE SQ 03/02/17 16:00 03/09/17 13:39 (Lactinex) 1 tab TID PO 03/02/17 18:00 03/09/17 12:20 (Tums Chew) 500 mg Q12HR CHEW 03/04/17 21:00 03/09/17 09:30 (Duoneb Neb) 1 ampule Q4HR NEB PRN NEB 03/05/17 13:30 03/05/17 21:44 (Duoneb Neb) 1 ampule Q6HR WHILE AWAKE NEB NEB 03/06/17 08:15 03/09/17 07:51 (Lasix Inj) 40 mg BID@,18 IV PUSH 03/06/17 18:00 03/09/17 09:31 (Synthroid) 150 mcg DAILY@0600 PO 03/06/17 12:30 03/09/17 05:50 (Prinivil) 5 mg DAILY PO 03/06/17 12:30 03/09/17 09:31 (Pravachol) 20 mg DAILY PO 03/07/17 09:00 03/09/17 09:31 (KCl) 20 meq Q12HR PO 03/08/17 09:00 03/09/17 09:31 (NovoLOG INJ) 10 units TIDAC SQ 03/08/17 17:00 03/09/17 12:21 (Levemir Inj) 20 units Q12HR SQ 03/08/17 21:00 03/09/17 09:32 (Levaquin) 750 mg Q24H PO 03/08/17 17:00 03/08/17 17:34 (KCl) 30 meq ONCE ONCE PO 03/09/17 15:30 03/09/17 15:31 UNV A/P Problem List: (1) Pyelonephritis ICD Code: N12 - Tubulo-interstitial nephritis, not specified as acute or chronic Status: Acute (2) Sepsis ICD Code: A41.9 - Sepsis, unspecified organism Status: Resolved (3) UTI (urinary tract infection) ICD Code: N39.0 - Urinary tract infection, site not specified Status: Acute (4) HTN (hypertension) ICD Code: I10 - Essential (primary) hypertension Status: Chronic (5) Diabetes mellitus type 2 in obese ICD Code: E11.69 - Type 2 diabetes mellitus with other specified complication; E66.9 - Obesity, unspecified Status: Chronic (6) Hypokalemia ICD Code: E87.6 - Hypokalemia Status: Acute Assessment and Plan 61-year-old female admitted with UTI, pyelonephritis, and sepsis Sepsis due to pyelonephritis/UTIEscherichia coli bacteremia On Rocephin IV Repeat blood culture no growth for 24 hours. Initial blood culture showing Escherichia coli pansensitive Follow vital signs Follow renal function 03/06 Fluids discontinued 03/05. Continue antibiotics as per ID recommendations. Patient currentlyon IV Rocephin. Continue to follow up blood cultures which so far are negative to date. 03/[address] abdomen and pelvis shows changes consistent with pyelonephritis. Sepsis seems to be improving with no further fevers 2 days. 03/08 continue antibiotics as per ID. The patient currently on Rocephin. Lumbar spine MRI as described above does not show any findings to indicate epidural abscess. 03/09 Will DC on Levaquin 14 days as per infectious disease recommendations. Metabolic encephalopathy-resolved Related to infection and sepsis Treat infection as above Hypocalcemia -Status post Calcium gluconate 2 g IV now and continue Tums twice a day. Telemetry. 03/06 Calcium levels within normal range. Diabetes mellitus type 2 Metformin held on admission. Patient started on Levemir 5 units of Levemir twice a day due to severe hyperglycemia. Patient still with severe hyperglycemia. I will increase Levemir to 10 units subcutaneously twice a day. Continue SSI with insulin NovoLog and diabetic diet. 03/07 patient with severe hyperglycemia. Continue Levemir 10 units subcutaneously twice a day, add prandial insulin with insulin NovoLog 7 units 3 times a day before meals. Continue SSI with insulin NovoLog and diabetic diet. 03/08 blood sugar still severely elevated blood sugars as high as 300. I will increase the insulin Levemir to 20 mg subcutaneous twice a day and the prandial insulin NovoLog from 7 units to 10 units 3 times a day before meals. Acute diastolic congestive heart failure chest x-ray showed pulmonary vascular congestion. Possible cardiac asthma versus rhonchi hyperreactivity. Wheezing now much improved and likely due to fluid overload. Patient started on Furosemide 40 mg IV BID which will be continued. 03/09 DC home on oral lasix. Check chest x-ray. The patient's case was discussed with physical therapist. Physical therapy stated that the patient is desating to the high 80s on ambulation. I will order respiratory walk test. Hypertension 03/08 BP more stable. Continue lisinopril 5 mg po daily. Hyperlipidemia Hypothyroidism 03/06 Resume home levothyroxine. 03/08 TSH and free T4 normal. Continue levothyroxine at same dose. Follows in outpatient DVT prophylaxis Lovenox SCDs Discharge Planning Possible discharge today after chest x-ray and respiratory walk test. Problem Qualifiers (1) Sepsis: Qualified Codes: A41.51 - Sepsis due to Escherichia coli [e. coli] Danish Overton MD Mar 09, 2017 15:34
--- NOTE | 2017-03-09 15:59 | RADRPT ---
EXAM DATE/TIME: 03/09/2017 15:31 [facility] COMPARISON: CHEST SINGLE AP, March 08, 2017, 17:07. INDICATIONS : Congestive heart failure. MEDICAL HISTORY : Diabetes mellitus type II. Hypertension SURGICAL HISTORY : Tonsillectomy. Hysterectomy. Coronary artery stent. ENCOUNTER: Subsequent ACUITY: 1 week PAIN SCORE: 0/10 LOCATION: Bilateral chest FINDINGS: Diffuse interstitial prominence slightly improved from prior exam. Cardiomediastinal contours are sta ble. Remainder of the exam is unchanged. CONCLUSION: 1. Improving mild interstitial edema. 1. Hector Chiu MD on March 09, 2017 at 15:56 Board Certified Radiologist. This report was verified electronically.
[2017-03-09 16:00] VITALS: BP 136/75; PULSE 79; RESP 18; TEMP 97.5; O2SAT 95
[2017-03-09] MEDS ORDERED: POTASSIUM CHLORIDE 10 MEQ CONTROLLED RELEASE TAB PO ONE (16:00)
[2017-03-09] MEDS ORDERED: FURO40TA PO (16:27)
[2017-03-09] MEDS ORDERED: LEVA750T9 PO (16:27)
[2017-03-09] MEDS ORDERED: LACT PO (16:27)
[2017-03-09] MEDS ORDERED: POTA1TAB4 PO (16:27)
--- NOTE | 2017-03-09 16:30 | HHI.DCPOC ---
Discharge Care Plan Diagnosis: (1) Acute diastolic (congestive) heart failure (2) Diabetes mellitus type 2 in obese (3) HTN (hypertension) (4) UTI (urinary tract infection) (5) Sepsis (6) Pyelonephritis (7) Hypokalemia Goals to Promote Your Health * To prevent worsening of your condition and complications * To maintain your health at the optimal level Directions to Meet Your Goals Take your medications as prescribed Follow your dietary instruction Follow activity as directed Keep your appointments as scheduled Take your immunizations and boosters as scheduled If your symptoms worsen call your PCP, if no PCP go to Urgent Care Center or Emergency Room Smoking is Dangerous to Your Health. Avoid second hand smoke Call the 24-hour hour crisis hotline for domestic abuse at Danish Overton MD Mar 09, 2017 16:30
--- NOTE | 2017-03-09 16:32 | HHI.DS ---
Discharge Summary Admission Date Mar 02, 2017 at 16:56 Discharge Date: Mar 09, 2017 Admitting Diagnosis (1) Pyelonephritis ICD Code: N12 - Tubulo-interstitial nephritis, not specified as acute or chronic Status: Acute (2) Sepsis ICD Code: A41.9 - Sepsis, unspecified organism Status: Resolved (3) UTI (urinary tract infection) ICD Code: N39.0 - Urinary tract infection, site not specified Status: Acute (4) HTN (hypertension) ICD Code: I10 - Essential (primary) hypertension Status: Chronic (5) Diabetes mellitus type 2 in obese ICD Code: E11.69 - Type 2 diabetes mellitus with other specified complication; E66.9 - Obesity, unspecified Status: Chronic (6) Hypokalemia ICD Code: E87.6 - Hypokalemia Status: Acute Procedures none Brief History - From Admission Mrs. Meier is a 7-year-old female. She came into the hospital secondary to lower back pain. It is also reported that she has been weak at home and having falls. She is also been acting confused. She is found to have a urinary tract infection and suspicion for pyelonephritis. Rocephin was started in the ER and diltiazem and the patient was sent here to [place] for admission. She and her help provide history. It has been approximately 3 or 4 days with gradual onset of symptoms. She does not have problems with recurrent urinary tract infections. Her baseline medical problems are diabetes mellitus type 2, hypertension, hyperlipidemia, incontinence, hypothyroidism, and history of vaginal bleeding which was treated in 2014. No other complaints. Lower back pain remains. Some nausea has been present. No chest pain. CBC/BMP: 03/09/17 0628 03/09/17 0628 Significant Findings Laboratory Tests Test 03/07/17 06:05 03/08/17 06:00 03/09/17 06:28 White Blood Count 12.3 TH/MM3 (4.0-11.0) 13.7 TH/MM3 (4.0-11.0) 12.8 TH/MM3 (4.0-11.0) Red Blood Count 3.45 MIL/MM3 (4.00-5.30) 3.50 MIL/MM3 (4.00-5.30) 3.80 MIL/MM3 (4.00-5.30) Hemoglobin 9.6 GM/DL (11.6-15.3) 9.9 GM/DL (11.6-15.3) 10.4 GM/DL (11.6-15.3) Hematocrit 28.6 % (35.0-46.0) 29.4 % (35.0-46.0) 31.7 % (35.0-46.0) Neutrophils (%) (Auto) 75.1 % (16.0-70.0) 72.6 % (16.0-70.0) Neutrophils # (Auto) 9.3 TH/MM3 (1.8-7.7) 9.2 TH/MM3 (1.8-7.7) Random Glucose 225 MG/DL (74-106) 212 MG/DL (74-106) 213 MG/DL (74-106) Albumin 2.2 GM/DL (3.4-5.0) 2.2 GM/DL (3.4-5.0) 2.3 GM/DL (3.4-5.0) Calcium Level 8.2 MG/DL (8.5-10.1) Alkaline Phosphatase 189 U/L (45-117) 179 U/L (45-117) 185 U/L (45-117) Aspartate Amino Transf (AST/SGOT) 67 U/L (15-37) 39 U/L (15-37) Alanine Aminotransferase (ALT/SGPT) 107 U/L (10-53) 79 U/L (10-53) 65 U/L (10-53) Potassium Level 3.1 MEQ/L (3.5-5.1) 2.9 MEQ/L (3.5-5.1) 3.3 MEQ/L (3.5-5.1) Estimat Glomerular Filtration Rate 79 ML/MIN (>89) 80 ML/MIN (>89) 70 ML/MIN (>89) Chloride Level 97 MEQ/L (98-107) Hemoglobin A1c 8.6 % (4.3-6.0) Blood Urea Nitrogen 20 MG/DL (7-18) Imaging Last Impressions Chest X-Ray 03/09/17 0000 Signed Impressions: Service Date/Time: Thursday, March 09, 2017 15:31 - CONCLUSION: 1. Improving mild interstitial edema. 1. Hector Chiu MD Lumbar Spine MRI 03/07/17 0000 Signed Impressions: Service Date/Time: February 17:15 - CONCLUSION: 1. No findings to indicate epidural abscess identified. 2. Broad-based, slightly left sided disc protrusion at L4-5. 3. Facet arthritis in the lower lumbar spine as above. Pb Bird MD Abdomen/Pelvis CT 03/06/17 0000 Signed Impressions: Service Date/Time: Monday, March 06, 2017 12:44 - CONCLUSION: 1. Stable bilateral 2-3 mm nonobstructing calyceal renal calculi. Mild asymmetric, right greater then left, perinephric stranding with subtle heterogeneous enhancement in the anterior mid right kidney. Although nonspecific, this finding may be seen with developing pyelonephritis. Clinical correlation is recommended. 2. Normal appendix. No evidence for abscess in the abdomen. 3. Ancillary findings include hepatic steatosis, small fat containing anterior periumbilical hernia, aortic atherosclerotic disease, degenerative spondylosis of the lumbar spine. Hector Chiu MD PE at Discharge AAOx3 mild tachypnea when lying down and talking Diffuse expiratory wheezing BL especially heard when coughing S1S2 RRR, no MRG Pt Condition on Discharge: Stable Discharge Disposition: Discharge Home Discharge Instructions DIET: Follow Instructions for: Heart Healthy Diet, Diabetic Diet Activities you can perform: Regular-No Restrictions Activities to Avoid: Prolonged Standing, Strenuous Activity Follow up Referrals: PCP Follow-up - 1 Week New Medications: Furosemide (Furosemide) 40 Mg Tab 40 MG PO DAILY for Shortness of Breath, #30 TAB 0 Refills Potassium Chloride ER (K-Tab) 20 Meq Tab 20 MEQ PO DAILY for Electrolyte Replacement, #30 TAB 0 Refills Lactobacillus Acidophilus (Acidophilus/l-Sporogenes) 35 Million Cell-25 Million Cell Tab 1 TAB PO TID for Infection, #30 TAB Levofloxacin (Levaquin) 750 Mg Tablet 750 MG PO Q24H for Infection, #14 TAB-CAP Continued Medications: Ergocalciferol (Vitamin D2) 2,000 Unit Tab 2000 UNITS PO DAILY for Nutritional Supplement, TAB 0 Refills Levothyroxine (Synthroid) 150 Mcg Tab 150 MCG PO DAILY for Thyroid, #30 TAB 0 Refills Lisinopril (Lisinopril) 5 Mg Tab 5 MG PO DAILY for Blood Pressure Management, #30 TAB 0 Refills Lovastatin (Lovastatin) 20 Mg Tab 20 MG PO DAILY for Cholesterol Management, #30 TAB 0 Refills Metformin (Metformin) 500 Mg Tab 500 MG PO BIDPC for Blood Sugar Management, #60 TAB 0 Refills With meals Danish Overton MD Mar 09, 2017 16:32
[2017-03-09] MEDS ORDERED: INSULIN DETEMIR 100 UNITS/ML VIAL SQ SCH (21:00)
== END 2017-03-09 18:09 | disposition home or self-care (01) | DRG 871 ==
LOC: NEDDLT 16:46 → PH3B 16:56
PROVIDERS: ADMIT Hospitalist; ATTEND Hospitalist
DX: A41.51 Sepsis due to Escherichia coli [E. coli] (principal); G93.41 Metabolic encephalopathy; I50.31 Acute diastolic (congestive) heart failure; N12 Tubulo-interstitial nephritis, not specified as acute or chronic; E11.65 Type 2 diabetes mellitus with hyperglycemia; E83.51 Hypocalcemia; E87.70 Fluid overload, unspecified; E78.5 Hyperlipidemia, unspecified; E03.9 Hypothyroidism, unspecified; E66.9 Obesity, unspecified; R06.2 Wheezing; N20.0 Calculus of kidney; E87.6 Hypokalemia; K76.0 Fatty (change of) liver, not elsewhere classified; I11.0 Hypertensive heart disease with heart failure; Z79.84 Long term (current) use of oral hypoglycemic drugs; Z95.5 Presence of coronary angioplasty implant and graft
CPT/HCPCS: 71010; 72131; 72158; 74176; 74177; 80048; 80053; 80074; 80076; 81001; 82948; 83036; 83605; 83735; 84100; 84439; 84443; 85025; 85027; 86140; 87040; 87077; 87086; 87186; 87205; 93306; 94150; 94620; 94640; 94664; 96365; A9579; J0610; J0696; J1650; J1815; J1940; J2060; J3370; J7030; J7040; J7050; Q9967